=== PATIENT | female | born 1935 | race Caucasian/White ===

== ENCOUNTER 2020-07-28 09:23 | Outpatient (CLI) | payer MEDICARE, SELFPAY ==
--- NOTE | 2020-07-28 | ECHO_ITS ---
Patient Info Name: Yeni Matthews Age: 85 years : 1935 Gender: Female Ht: 64 in Wt: 135 lbs BSA: 1.67 m2 HR: 70 bpm BP: 149 / 77 mmHg Heart Rhythm: Sinus Rhythm Technical Quality: Good Exam Date: 07/28/2020 9:55 AM Exam Location: [facility] Patient Status: Outpatient Admit Date: 07/28/2020 Staff Ordering Physician: GinnyHaroldo PA-C Tool Lathe Operator: James Muro RDCS Attending Provider: JalynHaroldo PA-C Exam Type: CA echo doppler color flow Study Info Indications R00.0 - Tachycardia, unspecified Complete two-dimensional, color flow and Doppler transthoracic echocardiogram is performed. History/Risk Factors Tachycardia. Summary 1. Complete two-dimensional, color flow and Doppler transthoracic echocardiogram is performed. 2. Normal LV size and wall thickness, normal LV systolic function, EF 65-70%. Grade 1 diastolic dysfunction. Normal mitral valve structure, no significant MR. Aortic valve not well visualized, no significant stenosis by Doppler. Unable to assess RVSP due to inadequate TR jet velocity. Sinus rhythm. Left Ventricle Left ventricular chamber dimension is normal. Left ventricular systolic function is normal, estimated at 65-70%. There is no increased left ventricular wall thickness. Left ventricular septal wall motion is normal. The left ventricular diastolic function is grade I diastolic dysfunction. Right Ventricle Right ventricular chamber dimension is normal. Right ventricular systolic function is normal. Left Atria Left atrial chamber dimension is normal. Right Atria Right atrial chamber dimension is normal. Aortic Valve The aortic valve is not well visualized. There is no aortic valve stenosis. There is mild aortic valve regurgitation. Pulmonic Valve The pulmonic valve is not well visualized. There is no pulmonic valve stenosis. There is no pulmonic regurgitation. Mitral Valve The mitral valve has normal leaflets. There is no mitral valve stenosis. There is no mitral valve regurgitation. Tricuspid Valve The tricuspid valve leaflets are normal. There is no significant tricuspid valve stenosis. There is no tricuspid valve regurgitation. Pericardium/Pleural The pericardium appears normal. There is trivial pericardial effusion. Inferior Vena Cava Normal inferior vena cava with >50% collapse upon inspiration consistent with normal right atrial pressure, 5 mmHg. Aorta The aortic root size at the sinus of Valsalva is normal. The prox ascending aorta size is normal. Left Ventricular Outflow Tract Name Value Normal LVOT 2D LVOT Diameter 2.0 cm LVOT Doppler LVOT Peak Gradient 3 mmHg LVOT Mean Gradient 2 mmHg LVOT VTI 21 cm LVOT VTI/AV VTI Ratio 0.8 LVOT Stroke Volume 64 ml LVOT CO 4.4 l/min LVOT CI 2.6 l/min/m2 Mitral Valve
== END 2020-07-28 09:24 | disposition home or self-care (01) ==
PROVIDERS: PCP Physician Assistant; Visit Provider Physician Assistant
DX: R00.0 Tachycardia, unspecified (principal)
CPT/HCPCS: 93306

== ENCOUNTER 2020-09-22 08:13 | Outpatient (CLI) | payer MEDICARE, SELFPAY ==
--- NOTE | ~2020-09-22 | DEXA_ITS ---
Bone Density Report Name: Yeni Matthews Age: 85 Sex: Female Ethnicity: White Date of : 1935 Indication: osteopenia; height loss; hysterectomy; Referring Provider: Ginny, Haroldo Study: Bone densitometry was performed. Exam Date: September 22, 2020 Accession number: [id number] Bone Density: Region BMD T-score Z-score Classification AP Spine (L1-L4) 0.882 -1.5 1.3 Osteopenia Femoral Neck (Left) 0.649 -1.8 0.7 Osteopenia Total Hip (Left) 0.836 -0.9 1.4 Normal Total Hip Bilateral Avg 0.812 -1.1 1.2 Osteopenia Femoral Neck (Right) 0.578 -2.4 0.0 Osteopenia Total Hip (Right) 0.786 -1.3 1.0 Osteopenia World Health Organization criteria for BMD impression classify patients as: Normal (T-score at or above -1.0), Osteopenia (T-score between -1.0 and -2.5), or Osteoporosis (T-score at or below -2.5). 10-year Fracture Risk(1): Major Osteoporotic Fracture 17% Hip Fracture 6.0% Reported Risk Factors: [place] (), Neck BMD=0.578, BMI=23.2 (1) FRAX(R) Version 3.08. Fracture probability calculated for an untreated patient. Fracture probability may be lower if the patient has received treatment. Previous Exams: Region Exam Age BMD T-score BMD Change BMD Change Date g/cm2 vs Baseline vs Previous AP Spine(L1-L4) 09/22/2020 85 0.882 -1.5 -0.023(-2.6%)# 0.014(1.6%) 07/18/2017 82 0.868 -1.6 -0.037(-4.1%)# -0.006(-0.7%) 07/09/2015 80 0.874 -1.6 -0.031(-3.5%)# -0.031(-3.5%)# 05/08/2013 78 0.905 -1.3 Total Hip(Left) 09/22/2020 85 0.836 -0.9 -0.031(-3.6%)# -0.021(-2.5%) 07/18/2017 82 0.857 -0.7 -0.010(-1.2%)# -0.018(-2.0%) 07/09/2015 80 0.875 -0.5 0.007(0.9%)# 0.007(0.9%)# 05/08/2013 78 0.868 -0.6 Total Hip(Right) 09/22/2020 85 0.786 -1.3 -0.025(-3.1%)# -0.022(-2.7%) 07/18/2017 82 0.808 -1.1 -0.003(-0.4%)# -0.018(-2.2%) 07/09/2015 80 0.826 -0.9 0.015(1.8%)# 0.015(1.8%)# 05/08/2013 78 0.811 -1.1 *Denotes significance at 95% confidence level, LSC for AP Spine = 0.022 g/cm2, LSC for Total Hip = 0.027 g/cm2 Clinical Information Provided by Patient: Has used the following medications: Vitamin D, Calcium Has the following medical conditions: Hysterectomy Patient maximum height was 65 Menopause Age: 42 Does not regularly consume dairy products Onset of menses at age 13 Number of children 4 Impression: The patient has low bone mass, based on the Right Femor
--- NOTE | ~2020-09-22 | MM_ITS ---
EXAMINATION: MM screening [facility] BI w layo HISTORY: Screening mammogram TECHNIQUE: Craniocaudal and mediolateral oblique 3-D tomosynthesis images were obtained and synthetic 2-D images were generated. CAD analysis was submitted and interpreted. COMPARISON: 07/05/2019, 05/08/2013, 04/30/2013, 07/23/2012 BREAST PARENCHYMAL COMPOSITION: There are scattered areas of fibroglandular density. FINDINGS: There is no evidence of suspicious mass, calcification, or architectural distortion to sugg est malignancy in either breast. There has been no suspicious interval change. IMPRESSION: 1. No mammographic evidence of malignancy. 2. Recommend routine screening mammography while the patient remains in good health. BI-RADS Category 1: Negative Reviewed, dictated and finalized at location A. EL TECHNICIAN IMPRESSION: 1. No mammographic evidence of malignancy. 2. Recommend routine screening mammography while the patient remains in good he alth. BI-RADS Category 1: Negative
== END 2020-09-22 08:14 | disposition home or self-care (01) ==
PROVIDERS: PCP Physician Assistant; Visit Provider Physician Assistant
DX: Z12.31 Encounter for screening mammogram for malignant neoplasm of breast (principal); N95.9 Unspecified menopausal and perimenopausal disorder; M85.88 Other specified disorders of bone density and structure, other site; M85.852 Other specified disorders of bone density and structure, left thigh; M85.851 Other specified disorders of bone density and structure, right thigh
CPT/HCPCS: 77063; 77067; 77080

== ENCOUNTER 2020-10-09 17:14 | Emergency (ER) | payer MEDICARE, SELFPAY ==
[2020-10-09] VITALS (29 sets, daily range): BP systolic 89–163; BP diastolic 47–84; PULSE 84–106; RESP 7–25; TEMP 36.3; O2SAT 97–100
--- NOTE | ~2020-10-09 | CT_ITS ---
EXAMINATION: CT brain wo con DATE: 10/09/2020 18:04 INDICATION: Headache. Altered mental status. TECHNIQUE: Computed tomography (CT) of the head was performed without intravenous contrast. The mA wa s adjusted according to patient size. Iterative reconstruction technique was employed. The dose-lengt h product was 605.33 mGy-cm. COMPARISON: Head CT 04/05/2019 FINDINGS: There are scattered areas of low attenuation in the cerebral white matter. There is no intr acranial hemorrhage, acute infarction, or abnormal intracranial mass lesion. The ventricles are wes l in size. There is mild mucosal thickening in the paranasal sinuses. There are likely changes of ocu lar lens replacement surgeries. The mastoid air cells are normal. IMPRESSION: 1. Stable moderate nonspecific cerebral white matter disease, which likely represents chronic small v essel ischemic disease. Reviewed, dictated and finalized at location A. DING MACHINE OPERATOR IMPRESSION: 1. Stable moderate nonspecific cerebral white matter disease, which likely repr esents chronic small vessel ischemic disease.
--- NOTE | ~2020-10-09 | CT_ITS ---
EXAMINATION: CT cervical spine wo con DATE: 10/09/2020 18:04 INDICATION: Neck injury. TECHNIQUE: Computed tomography (CT) of the cervical spine was performed without intravenous contrast. Automated exposure control and iterative reconstruction technique were employed. The dose-length pro duct was 239.06 mGy-cm. COMPARISON: None FINDINGS: There is 4 degrees dextrocurvature of cervical spine. There is 2 mm anterolisthesis of C4 o n C5. Vertebral body heights are normal. There is mildly decreased disc height at C3-C4 and C4-C5 and severely decreased disc height at C5-C6 and C6-C7. The following disc levels are specifically discus sed: C2-C3: There is moderate left uncovertebral joint osteoarthritis. There is mild right and severe left facet joint osteoarthritis. There is mild left neural foraminal stenosis. There is no central canal stenosis. C3-C4: There is severe bilateral uncovertebral joint osteoarthritis. There is mild bilateral facet ana paula int osteoarthritis. There is mild bilateral neural foraminal stenosis. There is mild central canal st enosis. C4-C5: There is severe right and mild left uncovertebral joint osteoarthritis. There is severe left f acet joint osteoarthritis. There is mild bilateral neural foraminal stenosis. There is mild central c anal stenosis. C5-C6: There is severe bilateral uncovertebral joint osteoarthritis. There is mild bilateral facet ana paula int osteoarthritis. There is mild bilateral neural foraminal stenosis. There is mild central canal st enosis. C6-C7: There is severe right and mild left uncovertebral joint osteoarthritis. There is moderate and severe left facet joint osteoarthritis. There is mild bilateral neural foraminal stenosis. There is n o central canal stenosis. C7-T1: There is no uncovertebral joint osteoarthritis. There is mild right and severe left facet join t osteoarthritis. There is mild left neural foraminal stenosis. There is no central canal stenosis. IMPRESSION: 1. No fracture. 2. Severe cervical spondylosis. Reviewed, dictated and finalized at location A. WASHER
--- NOTE | 2020-10-09 20:06 | ED.FALL ---
HPI - Fall General Chief Complaint: Fall Stated Complaint: fall Time Seen by Provider: 10/09/20 19:17 History of Present Illness HPI Narrative: Patient is a 85-year-old female who presents to emergency department with chief complaint of head injury. The patient reports that she was walking her dogs she had the leash got wrapped around her ankle and then she fell backwards. Patient states that she is unsure whether she had loss of consciousness but does not remember the actual fall or the immediate preceding events. The patient states that currently she knows where she is at and reports no weakness in her arms or legs or focal neurological deficit. Patient denies being on any anticoagulant or antiplatelet therapy. Patient reports that currently she has a mild headache and reports that she has a stiff neck. Related Data Allergies Allergy/AdvReac Type Severity Reaction Status Date / Time Sulfa (Sulfonamide Allergy Unknown Verified 10/20/15 09:32 Antibiotics) Review of Systems Review of Systems: Narrative: CONSTITUTIONAL: Denies fever, chills, or sweats. EYES: Denies visual changes, redness, or discharge. ENT: Denies rhinorrhea, congestion, sore throat, or otalgia. CARDIOVASCULAR: Denies chest pain, palpitations, or edema. RESPIRATORY: Denies cough or dyspnea. GASTROINTESTINAL: Denies abdominal pain, nausea, vomiting, or diarrhea. GENITOURINARY: Denies dysuria or hematuria. SKIN: Denies rash or itching. MUSCULOSKELETAL: Denies back pain, joint pain, or myalgia. NEUROLOGIC: Denies headache, numbness, or weakness. PSYCHIATRIC: Denies anxiety or depression. A 10 system review of systems was completed on the patient and is negative except for what is stated in the HPI. Nursing and ancillary documentation was reviewed. [facility] Family History Family History Sibling Family history of bipolar disorder Mother Acute myocardial infarction Other Family history of malignant melanoma Social History Social History Smoking status: Never smoker Second hand tobacco smoke exposure: No Alcohol intake: current Comments Patient reports that she has no significant past medical history and is currently not on any regular prescription medications Exam Narrative: Exam Narrative: GENERAL: Well-appearing, well-nourished, and in no acute distress. HEAD: Normocephalic, atraumatic. EYES: PERRLA and EOMI. ENT: Nares clear, no rhinorrhea or epistaxis. Mucous membranes moist. NECK: Supple. CHEST: Clear to auscultation. No respiratory distress. HEART: Regular rate and rhythm. No murmur heard. Normal peripheral pulses. ABDOMEN: Soft, nontender, nondistended, normal active bowel sounds. EXTREMITIES: Normal range of motion. No edema. SKIN: Warm, dry, no rash. NEURO: No focal deficits. Alert and oriented x3. GCS 15 PSYCH: Normal mood and affect. Course Course Emergency Course: Patient CT had showed a 6 mm hematoma septum pellucidum. Currently the patient is neurologically intact and is not on any antiplatelet or anticoagulant therapy. Due to the findings the case was discussed with the transfer center at [place] who currently has extremely limited beds and had recommended checking with another facility with neurosurgery capability. [facility] currently does not have any available beds the case has been discussed with the emergency transfer center and they are checking on the bed at this time. Vital Signs Vital signs: Vital Signs Temperature 36.3 C L 10/09/20 17:36 Pulse Rate 84 10/09/20 17:36 Respiratory Rate 15 10/09/20 17:36 Blood Pressure 163/84 H 10/09/20 17:36 Pulse Oximetry 100 10/09/20 17:36 Temperature 36.3 C L 10/09/20 17:36 Pulse Rate 94 10/09/20 19:23 Respiratory Rate 13 10/09/20 19:23 Blood Pressure 150/75 H 10/09/20 19:23 Pulse Oximetry 99 10/09/20 19:23
--- NOTE | 2020-10-09 20:14 | PC.NURSE ---
RN spoke with Daughter Dottie (JESSICA) at this time.
== END 2020-10-09 22:36 | disposition short-term general hospital (02) ==
PROVIDERS: Emergency Provider Emergency Medicine; PCP Physician Assistant
DX: S06.379A Contusion, laceration, and hemorrhage of cerebellum with loss of consciousness of unspecified duration, initial encounter (principal); R90.82 White matter disease, unspecified; M47.812 Spondylosis without myelopathy or radiculopathy, cervical region; Y93.K1 Activity, walking an animal; W18.09XA Striking against other object with subsequent fall, initial encounter
CPT/HCPCS: 70450; 72125; 99285

== ENCOUNTER 2020-10-15 09:00 | Outpatient (RCR) | payer MEDICARE, SELFPAY ==
--- NOTE | 2020-10-14 09:56 | PTOPEVAL ---
PHYSICAL THERAPY EVALUATION/DISCHARGE SUMMARY Thank you for referring Yeni Matthews to [facility].? The patient was evaluated and found to have no skilled PT needs at this time. The patient is discontinued from physical therapy-patient and family agree. Please review, sign, date and return this plan of care [facility]. I agree with the following plan. Referring Physician Date Attending Provider: Francesca Bailey TRAFFIC CONTROL SPECIALIST *PT Outpatient Evaluation/Discharge Start: 10/14/20 09:00 Freq: Status: Active Protocol: Document 10/14/20 09:00 [facility] (Rec: 10/14/20 09:55 [facility] [id number]) Therapy Assessment Status Assessment Status Evaluation Evaluation Information Problem Diagnosis subdural hematoma Onset 10/09/20 Cause fall Additional Evaluation Detail Patient was playing with the dogs and one of the dogs knocked her down and she hit her head, was unconsious a few seconds. Prior to that event the patient had no limits on lifestyle and was active. The patient has received PT for vertigo in recent past. Subjective Information Patient reports more memory Query Text:As Reported By Patient/ issues since fall. Patient Family does not notice any physical changes but wants to be checked to assure no therapy issues. Diagnostic Tests X-Rays For This Problem Yes: no fractures MRI For This Problem Yes: same results as CT scan Other Tests For This Problem Yes: CT scan; bleed had stopped on 2nd test Prior Level of Function Activity Level (Last 3 Months) Occupation retired Activity of Daily Living Ability Independent Indoor/Home Mobility Independent Community Mobility Independent Stairs Ability Independent Functional Cognition (Planning, Shopping Independent , Taking Medications) Cooking Yes Cleaning Yes Laundry Yes Shopping Yes Driving No Home Setting Home Type House,Single Level Environmental Barriers Railing, Bilateral,Stairs, Threshold Living Situation Alone Support Available Local Family Support Mobility Assistive Devices (Used Last 3 None Months) Pain Assessment Timing of Pain Assessment Timing of Pain Assessment
--- NOTE | 2020-10-15 11:38 | STOPEVAL ---
SPEECH THERAPY INITIAL EVALUATION AND DISCHARGE: Thank you for referring Yeni Matthews to [facility].?Upon evaluation, it has been determined that cognitive linguistic skills are within normal limits; therefore, no further speech therapy is warranted at this time. Please review, sign, date and return this plan of care [facility]. I agree with and certify that the following plan of care is medically necessary. Referring Physician Date Attending Provider: PHYSICIAN NOT ON STAFF *ST Outpatient Evaluation Start: 10/15/20 09:54 Freq: Status: Active Protocol: Document 10/15/20 09:54 [facility] (Rec: 10/15/20 11:38 [facility]CH[facility] [id number]) Therapy Assessment Status Assessment Status Assessment Status Evaluation Outpatient Past Medical History Neurological History Hx Neurological Disorders No Significant History Cardiovascular History Hx Cardiac Disorders No Significant History Respiratory History Hx Respiratory Disorders No Significant History Gastrointestinal History Hx Gastrointestinal Disorders No Significant History Genitourinary History Hx Genitourinary Disorders No Significant History Musculoskeletal History Hx Other Musculoskeletal Disorders Yes: Osteopenia Endocrine History Hx Endocrine Disorders No Significant History HEENT History Hx Cataracts Yes: 5 yrs ago Reproductive History Hx Hysterectomy Yes: in her 30's - partial Pain Assessment Timing of Pain Assessment Timing of Pain Assessment Assessment Self Report Self Report Pain Level 0 Pain Score Pain Score 0: Self Report Cognitive Evaluation Attention Assessment Sustained Attention Overall Attention Ability No Impairment Selective Attention Overall Attention Ability No Impairment Alternating Attention Overall Attention Ability No Impairment Orientation/Memory Assessment Immediate Memory 100 Query Text:% Accuracy Recent Memory 100 Query Text:% Accuracy Remote Memory 100 Query Text:% Accuracy Prospective Memory 100 Query Text:% Accuracy Temporal Orientation 100 Query Text:% Accuracy Spatial/Environmental Orientation 100 Query Text:% Accuracy Overall Orientation and Memory No Impairment Problem Solving Simple Problem Solving: Percent of 100 Accuracy 0-100 (%) Complex Problem Solving: Percent of 100 Accuracy 0-100 (%) Overall Problem Solving Skills No Impairment Thought Organization Sequencing: Percent of Accuracy 0-100 (% 100 ) Categorizing: Percent of Accuracy 0-100 100 (%) Functional Math: Percent of Accuracy 0- 100 100 (%) Functional Read
== END 2020-10-15 14:18 | disposition home or self-care (01) ==
LOC: ANHST 09:00
PROVIDERS: PCP Physician Assistant
DX: S06.5X9D Traumatic subdural hemorrhage with loss of consciousness of unspecified duration, subsequent encounter (principal)
CPT/HCPCS: 96125; 97161

== ENCOUNTER 2020-12-16 10:51 | Outpatient (CLI) | payer MEDICARE, SELFPAY ==
--- NOTE | ~2020-12-16 | CT_ITS ---
EXAMINATION: CT brain wo con DATE: 12/16/2020 11:24 INDICATION: Head injury. TECHNIQUE: Computed tomography (CT) of the head was performed without intravenous contrast. The mA wa s adjusted according to patient size. Iterative reconstruction technique was employed. The dose-lengt h product was 605.33 mGy-cm. COMPARISON: Head CT 10/09/2020 FINDINGS: There are scattered areas of low attenuation in the cerebral white matter. There is no intr acranial hemorrhage, acute infarction, or abnormal intracranial mass lesion. The ventricles are wes l in size. There are likely changes of ocular lens replacement surgeries. There is mild mucosal thick ening in the paranasal sinuses. The mastoid air cells are normal. IMPRESSION: 1. Stable moderate nonspecific cerebral white matter disease, which likely represents chronic small v essel ischemic disease. Reviewed, dictated and finalized at location A. AND STEEL WORK SUPERVISOR IMPRESSION: 1. Stable moderate nonspecific cerebral white matter disease, which likely repr esents chronic small vessel ischemic disease.
== END 2020-12-16 10:52 | disposition home or self-care (01) ==
PROVIDERS: PCP Physician Assistant; Visit Provider Physician Assistant
DX: S09.90XA Unspecified injury of head, initial encounter (principal); R90.82 White matter disease, unspecified
CPT/HCPCS: 70450

== ENCOUNTER → 2021-06-11 07:42 | Outpatient (CLI) | payer MEDICARE, SELFPAY ==
--- NOTE | ~2021-06-11 | US_ITS ---
US abdomen complete EXAMINATION: US Abdomen Complete INDICATION: Upper abdominal pain PROCEDURE: Realtime High Resolution abdomen ultrasound. COMPARISON: No prior studies for comparison FINDINGS: Gallbladder within normal limits. No gallstones, pericholecystic fluid, gallbladder wall t hickening or biliary dilatation. Common bile duct measures 4 mm. Liver echotexture within normal limits without focal mass. Pancreas within normal limits. Pancreati c tail is obscured by bowel gas. Spleen is unremarkeable. Renal echotexture is within normal limits bilaterally without hydronephrosis, contour deforming mass or renal stone. Right kidney measures 8.5 cm. Left kidney measures 9 cm. There is a 2 cm left renal cyst. There is left hydronephrosis. Visualized aspects of the aorta and IVC are within normal limits. Portal vein is patent. No sonograph ic Adrian's sign indicated by the technologist. IMPRESSION: 1: Left hydronephrosis. Reviewed, dictated and finalized at location A. IMPRESSION: 1: Left hydronephrosis.
== END ==
PROVIDERS: PCP Physician Assistant; Visit Provider Physician Assistant
DX: R10.10 Upper abdominal pain, unspecified (principal); N13.30 Unspecified hydronephrosis
CPT/HCPCS: 76700

== ENCOUNTER → 2021-06-18 08:59 | Outpatient (CLI) | payer MEDICARE, SELFPAY ==
--- NOTE | ~2021-06-18 | CT_ITS ---
EXAMINATION: CT abdomen pelvis wo con DATE: 06/18/2021 09:14 INDICATION: Left hydronephrosis, epigastric pain TECHNIQUE: Computed tomography (CT) of the abdomen and pelvis was performed without intravenous contr ast. The dose-length product (DLP) was 414.27 mGy-cm. Automated exposure control and iterative recons truction technique were employed. COMPARISON: Ultrasound, 06/11/2021 FINDINGS: Minimal dependent atelectasis is present in the lung bases. The heart size is normal. There is mild circumferential wall thickening of the distal esophagus. Punctate calcifications in an other mart normal spleen likely represent healed granulomatous disease. The liver, pancreas, gallbladder, a nd right adrenal gland are normal. A punctate calcification in the left adrenal gland could reflect p rior hemorrhage or trauma. The right kidney is unremarkable. There are multiple peripelvic cysts of t he left kidney. No left hydronephrosis is identified. No pathologically enlarged abdominal or pelvic lymph nodes are identified. There is no free intraperitoneal gas or evidence of bowel obstruction. Th ere is moderate thoracolumbar spondylosis. IMPRESSION: 1. Multiple peripelvic cysts of the left kidney without hydronephrosis. 2. Circumferential wall thickening of the distal esophagus which could reflect esophagitis. Consider direct visualization. Reviewed, dictated and finalized at location A.
== END ==
PROVIDERS: PCP Physician Assistant; Visit Provider Physician Assistant
DX: N13.30 Unspecified hydronephrosis (principal); N28.1 Cyst of kidney, acquired; M47.815 Spondylosis without myelopathy or radiculopathy, thoracolumbar region
CPT/HCPCS: 74176

== ENCOUNTER 2022-03-27 12:05 | Emergency (ER) | payer MEDICARE, SELFPAY ==
--- NOTE | ~2022-03-27 | XR_ITS ---
XR chest 2V DATE: 03/27/2022 12:33 INDICATION: Cough, congestion. Fatigue. Weakness. TECHNIQUE: PA and lateral views COMPARISON: 10/25/2012 PA and lateral chest FINDINGS: Normal heart size. Aortic calcification and mild unfolding. There is old pulmonary granulom atous disease. No pulmonary infiltrate or consolidation, pleural effusion or pulmonary vascular congestion or pneumo thorax. There is levoscoliosis of the thoracolumbar spine. There is diffuse osteopenia. IMPRESSION: No active cardiac pulmonary disease Aortic atherosclerosis Old pulmonary granulomatous disease Osteopenia Reviewed, dictated and finalized at location A.
[2022-03-27 12:10] VITALS: BP 152/75; PULSE 107; RESP 18; TEMP 36.4; O2SAT 97
[2022-03-27 12:38] LABS: Basophils Percent Auto 0.2 % (0.2-1.2); Eosinophils Absolute Auto 0.1 K/mm3 (0-0.3); Eosinophils Percent Auto 0.9 % (0-4.4); Hematocrit 41.4 % (37.0-47.0); Hemoglobin 13.3 g/dL (12.0-15.0); Immature Granulocyte Absolute 0.03 K/mm3 (0.00-0.031); Immature Granulocyte Percent A 0.3 % (0-0.5); Lymphocytes Absolute Auto 2.47 K/mm3 (0.9-3.2); Lymphocytes Percent Auto 23.9 % (18.3-44.2); Mean Corpuscular HGB Conc 32.1 g/dl (32-36); Mean Corpuscular Hemoglobin 31.7 pg (26-34); Mean Corpuscular Volume 98.8 fl (80-100); Mean Platelet Volume 8.8 fl (7.4-10.4); Monocytes Absolute Auto 0.4 K/mm3 (0.1-0.6); Monocytes Percent Auto 4.3 % (2.6-8.5); Neutrophils Absolute Auto 7.3 K/mm3 (1.3-6.7); Neutrophils Percent Auto 70.4 % (45.5-73.1); Platelet Count Result 224 k/mm3 (150-375); Red Blood Count 4.19 M/mm3 (4.2-5.4); Red Cell Distribution Width 13.5 % (11.5-14.5); White Blood Count 10.3 K/mm3 (4.5-10.0)
[2022-03-27 12:52] LABS: Alanine Aminotransferase 25 U/L (6-35); Albumin Level 4.5 g/dL (3.5-5.1); Alkaline Phosphatase 90 U/L (38-126); Anion Gap 8 mmol/L (8-16); Aspartate Amino Transferase 32 U/L (14-36); Bilirubin,Total 0.4 mg/dL (0.2-1.3); Blood Urea Nitrogen 14 mg/dL (7-17); Carbon Dioxide 27 mmol/L (22-30); Chloride 104 mmol/L (98-107); Estimated CRCL calculation 35 ml/min; Estimated Glomerular Filt Rate 60; Glucose 112 mg/dL (65-110); Potassium 4.8 mmol/L (3.4-5.0); Sodium 139 mmol/L (137-145)
--- NOTE | 2022-03-27 14:03 | ED.SOB ---
HPI - SOB/Dyspnea General Chief Complaint: Shortness of Breath/Dyspnea Stated Complaint: cough getting worse and headache Time Seen by Provider: 03/27/22 12:26 History of Present Illness HPI Narrative: Patient is an 87-year-old female who presents ER with shortness of breath. Recently placed on a Z-Wilfred for possible pneumonia after having abnormal lung sounds at [facility] urgent care. No fevers or chills or sweats. Does have a cough has been productive. No chest pain or chest pressure. No abdominal discomfort or other GI symptoms. Related Data Allergies Allergy/AdvReac Type Severity Reaction Status Date / Time Sulfa (Sulfonamide Allergy Unknown Verified 10/20/15 09:32 Antibiotics) Review of Systems Review of Systems: All systems reviewed & are unremarkable except as noted in HPI and below Constitutional: Constitutional: Denies chills, Reports fatigue, Denies fever(s) and Reports weakness ENT: Reports nasal congestion and Denies sore throat Cardiovascular: Cardiovascular: Denies chest pain, Denies rapid heart rate and Denies radiating jaw, neck or arm pain Respiratory: Respiratory: Reports cough, Reports dyspnea and Denies wheezing Gastrointestinal: Gastrointestinal: Denies abdominal pain, Denies nausea and Denies vomiting PMFSH Past Medical History Medical History (Updated 03/27/22 @ 15:52 by Ayden Logan MD) Bronchitis Surgical History Surgical History (Updated 03/27/22 @ 14:04 by Ayden Logan MD) History of hysterectomy Family History Family History Sibling Family history of bipolar disorder Mother Acute myocardial infarction Other Family history of malignant melanoma Social History Social History Smoking status: Never smoker Second hand tobacco smoke exposure: No Alcohol intake: current Exam Narrative: GENERAL: Well-appearing, well-nourished, and in no acute distress. HEAD: Normocephalic, atraumatic. NECK: Supple. CHEST: Clear to auscultation. No respiratory distress. HEART: Regular rate and rhythm. Normal peripheral pulses. ABDOMEN: Soft, nontender, nondistended. EXTREMITIES: Normal range of motion. No edema. SKIN: Warm, dry, no rash. NEURO: Alert and oriented x3. PSYCH: Normal mood and affect. Course Course Emergency Course: Normal exam. X-ray without pneumonia. Labs unremarkable. Continue home medication. We will add steroids as this may be of benefit to her. Vital Signs Vital signs: Vital Signs Temperature 97.6 F 03/27/22 12:10 Pulse Rate 107 H 03/27/22 12:10 Respiratory Rate 18 03/27/22 12:10 Blood Pressure 152/75 H 03/27/22 12:10 Pulse Oximetry 97 03/27/22 12:10 Temperature 97.6 F 03/27/22 12:10 Pulse Rate 107 H 03/27/22 12:10 Respiratory Rate 18 03/27/22 12:10 Blood Pressure 152/75 H 03/27/22 12:10 Pulse Oximetry 97 03/27/22 12:10 MDM - SOB/Dyspnea Lab Data Result diagrams: 03/27/22 12:28 03/27/22 12:28 Labs: Lab Results 03/27/22 03/27/22 03/27/22 Range/Units 12:28 12:28 14:22 WBC 10.3 H (4.5-10.0) K/mm3 RBC 4.19 L (4.2-5.4) M/mm3 Hgb 13.3 (12.0-15.0) g/dL Hct 41.4 (37.0-47.0) % MCV 98.8 (80-100) fl MCH 31.7 (26-34) pg MCHC 32.1 (32-36) g/dl RDW 13.5 (11.5-14.5) % Plt Count 224 (150-375) k/mm3 MPV 8.8 (7.4-10.4) fl Immature Gran % (Auto) 0.3 (0-0.5) % Neut % (Auto) 70.4 (45.5-73.1) % Lymph % (Auto) 23.9 (18.3-44.2) % [place] % (Auto) 4.3 (2.6-8.5) % Eos % (Auto) 0.9 (0-4.4) % Baso % (Auto) 0.2 (0.2-1.2) % Lymph # (Auto) 2.47 (0.9-3.2) K/mm3 [place] # (Auto) 0.4 (0.1-0.6) K/mm3 Eos # (Auto) 0.1 (0-0.3) K/mm3 Baso # (Auto) 0.0 (0.0-0.1) K/mm3 Abs Immat Gran (auto) 0.03 (0.00-0.031) K/mm3 Absolute Neuts (auto) 7.3 H (1.3-6.7) K/mm3 Absolute Nucleated
[2022-03-27] MEDS: SODIUM CHLORIDE 0.9% IV 1,000 ML 999 ML IV CONT (14:27)
[2022-03-27 15:03] LABS: Influenza A QL RT-PCR Negative (Negative); Influenza B QL RT-PCR Negative (Negative); SARS-CoV-2 RNA PCR Negative
[2022-03-27] MEDS: ACETAMINOPHEN 325 MG TABLET 650 MG PO (15:25)
== END 2022-03-27 16:26 | disposition home or self-care (01) ==
PROVIDERS: Emergency Provider Emergency Medicine; PCP Physician Assistant
DX: J40 Bronchitis, not specified as acute or chronic (principal); Z20.822 Contact with and (suspected) exposure to COVID-19; M85.80 Other specified disorders of bone density and structure, unspecified site; I70.0 Atherosclerosis of aorta
CPT/HCPCS: 36415; 71046; 80053; 85025; 87502; 96360; 99283; A9270; C9803; J7030; U0003; U0005

== ENCOUNTER → 2022-09-09 10:51 | Outpatient (CLI) | payer MEDICARE, SELFPAY ==
--- NOTE | ~2022-09-09 | XR_ITS ---
XR knee RT min 4V 09/09/2022 11:11 Indication: Right knee pain Procedure: 4 views right knee Comparison: No prior studies for comparison. Findings: Mild osteoarthritis of the right knee. No fracture, subluxation or dislocation. No signific ant joint effusion. No foreign bodies. Impression: 1: Mild osteoarthritis of the right knee. Reviewed, dictated and finalized at location B. Impression: 1: Mild osteoarthritis of the right knee.
--- NOTE | ~2022-09-09 | MR_ITS ---
EXAMINATION: MR knee RT wo con DATE: 09/09/2022 16:22 INDICATION: Effusion of right knee. Right knee pain. TECHNIQUE: Magnetic resonance imaging (MRI) of the right knee was performed without intravenous contr ast. Sequences included axial PD-weighted FS FSE, coronal PD-weighted FSE and PD-weighted FS FSE, sag ittal PD-weighted FSE, and sagittal T2-weighted FS FSE. COMPARISON: Right knee radiographs 09/09/2022, MRI 03/07/2018 FINDINGS: Medial compartment: There is a complex tear involving body and posterior horn of medial meniscus. There is shallow partia l-thickness cartilage loss of tibial condyle. There is partial-thickness cartilage loss of femoral co ndyle, deep at the central articular surface. Osteophytes are noted. Lateral compartment: There is a complex tear involving anterior horn and body of lateral meniscus. There is partial-thickn ess cartilage loss of tibial condyle, deep posteriorly. There is cartilage surface irregularity of fe moral condyle. Osteophytes are noted. Patellofemoral compartment: There is deep partial thickness cartilage loss of patellar lateral facet with mild subchondral edema- like marrow signal intensity. There is deep fissuring of patellar medial facet. Trochlear dysplasia i s noted. There is cartilage surface irregularity of trochlea. Osteophytes are noted. Ligaments and tendons: The anterior and posterior cruciate ligaments are normal. There are changes of prior sprains of media l collateral ligament and fibular collateral ligament characterized with thickening and increased sig nal intensity proximally. There is mild patellar tendinopathy. Fluid: There is a moderate-sized knee joint effusion. There is a large ruptured Martines's cyst. There is mild prepatellar and superficial infrapatellar bursitis. There is mild deep infrapatellar bursitis. IMPRESSION: 1. Moderate tricompartmental chondrosis. 2. Tears of medial and lateral menisci. 3. Moderate-sized knee joint effusion. 4. Large ruptured Martines's cyst. Reviewed, dictated and finalized at location A.
== END ==
PROVIDERS: PCP Physician Assistant; Visit Provider Physician Assistant
DX: M25.461 Effusion, right knee (principal); M22.2X1 Patellofemoral disorders, right knee; S83.241A Other tear of medial meniscus, current injury, right knee, initial encounter; S83.281A Other tear of lateral meniscus, current injury, right knee, initial encounter; M71.21 Synovial cyst of popliteal space [Baker], right knee; M16.11 Unilateral primary osteoarthritis, right hip
CPT/HCPCS: 73564; 73721

== ENCOUNTER 2022-09-19 13:28 | Outpatient (CLI) | payer MEDICARE, SELFPAY ==
--- NOTE | ~2022-09-19 | DEXA_ITS ---
Bone Density Report Name: LI MARTINES Age: 87 Sex: Female Ethnicity: White Date of : 1935 Indication: osteopenia; height loss; hysterectomy; postmenopausal Referring Provider: BENJAMIN, ZELALEM Study: Bone densitometry was performed. Exam Date: September 19, 2022 Accession number: [id number] Bone Density: Region BMD T-score Z-score Classification AP Spine(L1-L4) 0.879 -1.5 1.3 Osteopenia Femoral Neck (Left) 0.647 -1.8 0.7 Osteopenia Total Hip (Left) 0.829 -0.9 1.4 Normal Femoral Neck (Right) 0.597 -2.3 0.3 Osteopenia Total Hip (Right) 0.793 -1.2 1.1 Osteopenia Total Hip Mean 0.811 -1.1 1.3 Osteopenia World Health Organization criteria for BMD impression classify patients as: Normal (T-score at or above -1.0), Osteopenia (T-score between -1.0 and -2.5), or Osteoporosis (T-score at or below -2.5). 10-year Fracture Risk(1): Major Osteoporotic Fracture 15% Hip Fracture 5.3% Reported Risk Factors: [place] (), Neck BMD=0.597, BMI=22.1 (1) FRAX(R) Version 3.08. Fracture probability calculated for an untreated patient. Fracture probability may be lower if the patient has received treatment. Previous Exams: Region Exam Age BMD T-score BMD Change BMD Change Date g/cm2 vs Baseline vs Previous AP Spine (L1-L4) 09/19/2022 87 0.879 -1.5 -0.026 (-2.9%) -0.003 (-0.3%) 09/22/2020 85 0.882 -1.5 -0.023 (-2.6%) 0.014 (1.6%) 07/18/2017 82 0.868 -1.6 -0.037 (-4.1%) -0.006 (-0.7%) 07/09/2015 80 0.874 -1.6 -0.031 (-3.5%) -0.031 (-3.5%) 05/08/2013 78 0.905 -1.3 Total Hip(Left) 09/19/2022 87 0.829 -0.9 -0.039 (-4.5%) -0.008 (-0.9%) 09/22/2020 85 0.836 -0.9 -0.031 (-3.6%) -0.021 (-2.5%) 07/18/2017 82 0.857 -0.7 -0.010 (-1.2%) -0.018 (-2.0%) 07/09/2015 80 0.875 -0.5 0.007 (0.9%)# 0.007 (0.9%)# 05/08/2013 78 0.868 -0.6 Total Hip(Right) 09/19/2022 87 0.793 -1.2 -0.019 (-2.3%) 0.006 (0.8%) 09/22/2020 85 0.786 -1.3 -0.025 (-3.1%) -0.022 (-2.7%) 07/18/2017 82 0.808 -1.1 -0.003 (-0.4%) -0.018 (-2.2%) 07/09/2015 80 0.826 -0.9 0.015 (1.8%)# 0.015 (1.8%)# 05/08/2013 78 0.811 -1.1 *Denotes significance at 95% confidence level, LSC for AP Spine = 0.022 g/cm2, LSC for Total Hip = 0.027 g/cm2 # Denotes dissimilar scan types or analysis methods Clinical Information Provided by Patient: Has used the following medications: Vitamin D Has the following medical conditions: Hysterectomy Patient ju
== END 2022-09-19 13:29 | disposition home or self-care (01) ==
LOC: ANHIMG 13:30
PROVIDERS: PCP Physician Assistant; Visit Provider Physician Assistant
DX: Z78.0 Asymptomatic menopausal state (principal); M85.89 Other specified disorders of bone density and structure, multiple sites
CPT/HCPCS: 77080

== ENCOUNTER → 2022-10-05 15:04 | Outpatient (CLI) | payer MEDICARE, SELFPAY ==
--- NOTE | ~2022-10-05 | XR_ITS ---
XR hip LT min 2V 10/05/2022 15:20 Indication: Left hip Procedure: 2 views left hip Comparison: 05/14/2019 Findings: There is anatomic alignment of the left hip. No significant joint space narrowing. No fract ure or traumatic malalignment. No significant soft tissue abnormality. Surrounding osseous structures are unremarkable. Impression: 1: No significant bone or joint abnormality. Reviewed, dictated and finalized at location B. CUTTER Impression: 1: No significant bone or joint abnormality.
== END ==
PROVIDERS: PCP Physician Assistant; Visit Provider Physician Assistant
DX: M25.552 Pain in left hip (principal)
CPT/HCPCS: 73502

== ENCOUNTER → 2022-10-20 16:03 | Outpatient (CLI) | payer MEDICARE, SELFPAY ==
--- NOTE | ~2022-10-20 | MR_ITS ---
EXAMINATION: MR hip LT wo con DATE: 10/20/2022 17:04 INDICATION: Left hip pain. TECHNIQUE: Magnetic resonance imaging (MRI) of the left hip was performed without intravenous contras t. COMPARISON: Left hip radiographs 10/05/2022 FINDINGS: Bones/cartilage: There is lumbar dextrocurvature and mild spondylosis. No fracture. The hip joints demonstrate tiny os teophytes. Small [id number] images of left hip demonstrate partial-thickness cartilage loss. Labrum: There is a tear of the left acetabular labrum. Fluid: There is no hip joint effusion. There is mild right and moderate left trochanteric bursitis. Soft tissues: The right gluteus medius and gluteus minimus tendons are normal. Left gluteus minimus tendon is wes l. There is moderate left gluteus medius tendinopathy. There is mild tendinopathy of the hamstring or igins bilaterally. The iliopsoas tendons are normal. IMPRESSION: 1. Mild osteoarthritis of the hips. 2. Moderate left gluteus medius tendinopathy. 3. Mild right and moderate left trochanteric bursitis. Reviewed, dictated and finalized at location A. UNTING CONSULTANT
== END ==
PROVIDERS: PCP Physician Assistant; Visit Provider Physician Assistant
DX: M16.0 Bilateral primary osteoarthritis of hip (principal); M70.62 Trochanteric bursitis, left hip
CPT/HCPCS: 73721

== ENCOUNTER 2022-11-01 10:01 | Outpatient (CLI) | payer MEDICARE, SELFPAY ==
--- NOTE | ~2022-11-01 | MM_ITS ---
EXAMINATION: MM screening brandon BI w layo HISTORY: Screening TECHNIQUE: Craniocaudal and mediolateral oblique 3-D tomosynthesis images were obtained and synthetic 2-D images were generated. CAD analysis was submitted and interpreted. COMPARISON: Comparison to multiple prior studies sequentially, with oldest reviewed study dated 07/05. BREAST PARENCHYMAL COMPOSITION: There are scattered areas of fibroglandular density. FINDINGS: There is no evidence of suspicious mass, calcification, or architectural distortion to sugg est malignancy in either breast. There has been no suspicious interval change. IMPRESSION: 1. No mammographic evidence of malignancy. 2. Recommend routine screening mammography in one year. BI-RADS Category 1: Negative Reviewed, dictated and finalized at location A. TICE REPRESENTATIVE
== END 2022-11-01 10:02 | disposition home or self-care (01) ==
LOC: ANHIMG 10:02
PROVIDERS: PCP Physician Assistant; Visit Provider Physician Assistant
DX: Z12.31 Encounter for screening mammogram for malignant neoplasm of breast (principal)
CPT/HCPCS: 77063; 77067

== ENCOUNTER → 2023-03-15 08:29 | Outpatient (CLI) | payer MEDICARE, SELFPAY ==
--- NOTE | ~2023-03-15 | MR_ITS ---
EXAMINATION: MR knee RT wo con DATE: 03/15/2023 09:24 INDICATION: Meniscal tear presenting with lateral right knee pain and generalized swelling TECHNIQUE: Magnetic resonance imaging (MRI) of the right knee was performed without intravenous contr ast. Sequences included coronal PD-weighted FSE, coronal PD-weighted FS FSE, sagittal T2-weighted FS E, sagittal PD-weighted FS FSE and axial PD weighted fat saturated FSE. COMPARISON: None. FINDINGS: Medial compartment: There is medial extrusion of the medial meniscal body. There is a small linear horizontal tear at the medial meniscal body which extends to the superior articular surface anteriorly, crossing the free e dge at the midportion of the meniscal body contacting the inferior articular surface in the posterior meniscal body. The central aspect of the posterior horn of the medial meniscus is small suggesting e ither a radial tear with architectural distortion distracting the tear margins or complex tear with s econdary loss of meniscal tissue. Partial-thickness chondral ulceration along the anterior to central weightbearing medial femoral condyle with partial thickness cartilage loss and scattered chondral carrasco rface regularity most prominent anterior band at the lateral aspect of the central weightbearing medi al femoral condyle. Cartilage along the medial tibial plateau appears relatively preserved. Lateral compartment: There is lateral extrusion of the lateral meniscal body. Complex tear with macerated appearance of th e anterior horn with a few very small para meniscal cysts along its peripheral margin. Additional mor e subtle complex tear contacting the intra-articular surface at a few locations in the posterior horn and with more amorphous increased signal involving the inner third of the intervening meniscal body. Deep chondral ulceration along the posterior aspect of the lateral tibial plateau. Mild partial-thic kness cartilage loss with some chondral surface regularity along the central weightbearing lateral fe moral condyle. Patellofemoral compartment: Partial-thickness chondral ulceration and scattered fissuring with underlying subarticular edema-like signal change at the lateral patellar facet. Additional mild partial-thickness cartilage loss with m inimal chondral surface regularity but without degenerative subchondral changes along the lateral asp ect of the lateral trochlea. Trochlear dysplasia with very shallow, nearly flat trochlear groove. Ligaments and tendons: Anterior and posterior cruciate ligaments are normal. The fibular ligament complex is normal. There i s mild thickening and minimal increased signal the proximal medial collateral ligament without surrou nding edema consistent with mild scarring related to chronic sprain. The extensor mechanism is normal . The visualized medial and lateral hamstring tendons as well as the iliotibial band are normal. Fluid: Minimal right knee joint effusion. No loose osteochondral bodies identified. Large Martines's cyst measu ring 6.1 x 2.3 x 2.4 cm. Osseous/other: No fracture or pathologic marrow replacing process. No fracture or pathologic marrow replacing proces s. IMPRESSION: 1. Complex medial and lateral meniscal tears. 2. Mild tricompartmental osteoarthritis with moderate grade chondromalacia in all 3 compartments and small regions of high-grade patellar chondromalacia. 3. 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 4. Large Martines's cyst. Reviewed, dictated and finalized at location B. IMPRESSION: 1. Complex medial and lateral meniscal tears. 2. Mild tricompartmental osteoarthritis with moderate grade chondromalacia in a ll 3 compartments and small regions of high-grade patellar chondromalacia. 3. 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
== END ==
PROVIDERS: PCP Physician Assistant; Visit Provider Physician Assistant
DX: S83.271A Complex tear of lateral meniscus, current injury, right knee, initial encounter (principal); S83.231A Complex tear of medial meniscus, current injury, right knee, initial encounter; X58.XXXA Exposure to other specified factors, initial encounter; M17.11 Unilateral primary osteoarthritis, right knee; M71.21 Synovial cyst of popliteal space [Baker], right knee
CPT/HCPCS: 73721

== ENCOUNTER 2023-10-21 12:06 | Emergency (ER) | payer MEDICARE, SELFPAY ==
--- NOTE | ~2023-10-21 | CT_ITS ---
EXAMINATION: CT cervical spine wo con DATE: 10/21/2023 14:31 INDICATION: Fall TECHNIQUE: Computed tomography (CT) of the cervical spine was performed without intravenous contrast. Automated exposure control and iterative reconstruction technique were employed. The dose-length pro duct was 155.29 mGy-cm. COMPARISON: 10/09/2020. FINDINGS: Vertebral Body Alignment: Intact. Craniocervical and atlantoaxial alignment: Moderate degenerative change. Alignment intact. Osseous structures/fracture: No evidence of a lytic or blastic process in the visualized spine. No e vidence of acute fracture. Cervical soft tissues: The paraspinal soft tissues planes are maintained. Degenerative changes: Degenerative changes, without severe neural foraminal or central canal narrowin g. IMPRESSION: No acute fracture or traumatic malalignment in the cervical spine. Reviewed, dictated and finalized at location K. INUOUS IMPROVEMENT BLACK BELT
--- NOTE | ~2023-10-21 | CT_ITS ---
EXAMINATION: CT brain wo con DATE: 10/21/2023 14:31 INDICATION: Head injury . TECHNIQUE: Computed tomography (CT) of the head was performed without intravenous contrast. The mA wa s adjusted according to patient size. Iterative reconstruction technique was employed. The dose-lengt h product was 605.33 mGy-cm. COMPARISON: None. FINDINGS: No acute intracranial hemorrhage or extra-axial fluid collection. No hydrocephalus, mass, or herniation. No acute ischemic infarct. Unremarkable dural venous sinus attenuation. No acute osseous abnormality. Nodular mucosal thickening in the posterior ethmoid and sphenoid sinuses, the remaining aerated space s are clear. Mild atrophy and moderate chronic white matter change. Atherosclerotic intracranial calcification. Bi lateral lens replacements. IMPRESSION: No acute intracranial process. Reviewed, dictated and finalized at location K. ENGINEER
[2023-10-21 12:09] VITALS: BP 154/82; PULSE 78; RESP 18; TEMP 36.2; O2SAT 100
--- NOTE | 2023-10-21 15:26 | ED.FALL ---
HPI - Fall General Chief Complaint: Fall Stated Complaint: fall Time Seen by Provider: 10/21/23 13:17 History of Present Illness HPI Narrative: This is an 88-year-old female, with no significant past medical history, who presents to the emergency department a fall and head injury. The patient states she was at the [employer], when she lost her balance, falling backwards and striking the back of her head and the outstretched right. She denies loss of consciousness, weakness / numbness change/ loss of vision or persistent vomiting. She complains of 6/10 headache and 2/10 right wrist pain. She has no other complaints at this time. She does not take blood thinners. Related Data Home Medications Medication Instructions Recorded Confirmed multivitamin (Multiple Vitamins 1 tablet PO DAILY 10/19/22 11/02/22 tablet) Allergies Allergy/AdvReac Type Severity Reaction Status Date / Time ciprofloxacin [From Cipro] Allergy Mild Unknown Verified 10/21/23 12:25 Sulfa (Sulfonamide Allergy Unknown Unknown Verified 10/21/23 12:25 Antibiotics) sulfamethoxazole Allergy Nausea and Verified 10/21/23 12:25 [From Bactrim] Vomiting trimethoprim [From Bactrim] Allergy Nausea and Verified 10/21/23 12:25 Vomiting Review of Systems Review of Systems: CONSTITUTIONAL: Denies fever, chills, or sweats. CARDIOVASCULAR: Denies chest pain, palpitations, or edema. RESPIRATORY: Denies cough or dyspnea. GASTROINTESTINAL: Denies abdominal pain, nausea, vomiting, or diarrhea. GENITOURINARY: Denies dysuria or hematuria. SKIN: Denies rash or itching. MUSCULOSKELETAL: Right wrist pain Denies back pain, or myalgia. NEUROLOGIC: Headache Denies numbness, dizziness, or weakness. PSYCHIATRIC: Denies anxiety or depression. [facility] Past Medical History Medical History Bronchitis Paresthesia of bilateral legs Ulnar nerve impingement Surgical History Surgical History History of hysterectomy Family History Family History Sibling Family history of bipolar disorder Mother Acute myocardial infarction Other Family history of malignant melanoma Social History Social History Smoking status: Never smoker Second hand tobacco smoke exposure: No Alcohol intake: current Lack of Transportation: No Lack of Food: Never True Current Housing: I Have Housing Concerned About Future Housing: No Difficulty Paying Gas/Electric Bills: No Difficulty Paying for Meds: No Currently Unemployed: No Education: Master's Degree or Higher Difficulty w/ Childcare or Family Care: No Exam Narrative: GENERAL: Well-appearing, well-nourished, and in no acute distress. HEAD: Normocephalic, small abrasion is noted to the right occiput without step-off or crepitus EYES: PERRLA and EOMI. ENT: Nares clear, no rhinorrhea or epistaxis. Mucous membranes moist. Oropharynx without tonsillar hypertrophy exudate or other lesions. NECK: Supple. No midline spine tenderness to palpation, no step-off or crepitus CHEST: Clear to auscultation. No respiratory distress. No wheezes rales or rhonchi HEART: Regular rate and rhythm. No murmur heard. Normal peripheral pulses. ABDOMEN: Soft, nontender, nondistended, normal active bowel sounds. BACK: No midline spine tenderness to palpation, no step-off or crepitus EXTREMITIES: Superficial abrasion noted over the right thenar eminence. Normal range of motion of all joints. No pain or crepitus with palpation of the right wrist or hand. No edema. SKIN: Warm, dry, no rash. NEURO: Alert and oriented x3. strength 5/5 in all extremities, sensation intact bilaterally, no noted ataxia, normal gait PSYCH: Normal mood and affect. Course Course Emergency Course: 15:20 - CT head negative
[2023-10-21 15:46] VITALS: BP 174/86; PULSE 76; RESP 18; O2SAT 99
== END 2023-10-21 15:49 | disposition home or self-care (01) ==
PROVIDERS: Emergency Provider Preventive Medicine Aerospace Medicine; PCP Physician Assistant
DX: S06.0X0A Concussion without loss of consciousness, initial encounter (principal); S00.03XA Contusion of scalp, initial encounter; W19.XXXA Unspecified fall, initial encounter
CPT/HCPCS: 70450; 72125; 99284

== ENCOUNTER 2024-01-19 15:16 | Outpatient (CLI) | payer MEDICARE, SELFPAY ==
--- NOTE | ~2024-01-19 | MM_ITS ---
EXAMINATION: MM screening brandon BI w layo HISTORY: Screening mammogram TECHNIQUE: Craniocaudal and mediolateral oblique 3-D tomosynthesis images were obtained and synthetic 2-D images were generated. CAD analysis was submitted and interpreted. COMPARISON: 11/01/2022, 09/22/2020 bilateral screening mammogram examinations BREAST PARENCHYMAL COMPOSITION: There are scattered areas of fibroglandular density. FINDINGS: There is no evidence of suspicious mass, calcification, or architectural distortion to sugg est malignancy in either breast. There has been no suspicious interval change. IMPRESSION: 1. No mammographic evidence of malignancy. 2. Recommend routine screening mammography in one year. BI-RADS Category 1: Negative Reviewed, dictated and finalized at location A. ER LAUNDRY ARTICLES
== END 2024-01-19 15:17 | disposition home or self-care (01) ==
LOC: ANHIMG 15:20
PROVIDERS: PCP Physician Assistant; Visit Provider Physician Assistant
DX: Z12.31 Encounter for screening mammogram for malignant neoplasm of breast (principal)
CPT/HCPCS: 77063; 77067

== ENCOUNTER 2024-02-02 18:03 | Emergency (ER) | payer MEDICARE, SELFPAY ==
--- NOTE | ~2024-02-02 | XR_ITS ---
EXAMINATION: XR lumbar spine 2-3V DATE: 02/02/2024 18:55 INDICATION: Low back pain TECHNIQUE: Anteroposterior and lateral views of the lumbar spine, and cone-down lateral view of the l umbosacral junction were obtained. COMPARISON: CT, 06/18/2021 FINDINGS: Bone alignment is normal. There is no fracture. The lumbar vertebral body heights are maint ained. There is mild loss of intervertebral disc space height at L1-2. There is moderate facet joint osteoarthritis of the lower lumbar spine. Calcified atherosclerosis is noted. IMPRESSION: 1. Mild to moderate lumbar spondylosis without acute findings. Reviewed, dictated and finalized at location F.
--- NOTE | ~2024-02-02 | CT_ITS ---
EXAMINATION: CT cervical spine wo con DATE: 02/02/2024 18:44 INDICATION: Head injury TECHNIQUE: Computed tomography (CT) of the cervical spine was performed without intravenous contrast. The dose-length product (DLP) was 162.20 mGy-cm. Automated exposure control and iterative reconstruc tion technique were employed. COMPARISON: 10/21/2023 FINDINGS: There are 2 mm of anterolisthesis of C4 on C5. There is no fracture. The odontoid process i s intact. There is moderate loss of intervertebral disc space height at C5-6. There is multilevel mod erate facet and uncovertebral joint osteoarthritis. The vertebral body heights are maintained. IMPRESSION: 1. Mild/moderate cervical spondylosis without acute findings or significant interval change. Reviewed, dictated and finalized at location F. IMPRESSION: 1. Mild/moderate cervical spondylosis without acute findings or significant int erval change.
--- NOTE | ~2024-02-02 | XR_ITS ---
EXAMINATION: XR thoracic spine 3V DATE: 02/02/2024 18:55 INDICATION: Back pain after fall TECHNIQUE: AP, lateral and lateral swimmer's views of the thoracic spine were obtained. COMPARISON: None. FINDINGS: Bone alignment is normal. There is no fracture. The vertebral body heights are maintained. There is moderate loss of intervertebral disc space height throughout the thoracic spine. Small degen erative osteophytes project from the anterior endplates of multiple vertebral bodies. IMPRESSION: 1. Moderate thoracic spondylosis without acute findings. Reviewed, dictated and finalized at location F.
--- NOTE | ~2024-02-02 | CT_ITS ---
EXAMINATION: CT brain wo con INDICATION: Head injury COMPARISON: 10/21/2023 TECHNIQUE: Standard unenhanced head CT. The dose-length product (DLP) was 605.33 mGy-cm. The mA was a djusted according to patient size. Iterative reconstruction technique was employed. FINDINGS: No acute intraparenchymal hemorrhage. No evidence of mass lesion. No evidence of acute infa rction. There is mild periventricular and subcortical hypodensity probably related to small vessel is chemic disease. There is mild prominence of the sulci and ventricles related to cerebral atrophy. Int racranial calcified cerebral atherosclerosis is noted. No extra-axial collections. No mass effect or midline shift. Changes in the globes are likely from ocular lens surgery. There is mild mucosal thick ening of the paranasal sinuses. IMPRESSION: 1. No acute intracranial abnormality. 2. Age related findings. Reviewed, dictated and finalized at location F.
[2024-02-02 18:08] VITALS: BP 151/79; PULSE 92; RESP 16; TEMP 36.3; O2SAT 100
--- NOTE | 2024-02-02 18:14 | ED.HEATRA ---
HPI - Head Injury General Chief complaint: Head Injury Stated complaint: fall, hit back of head Time Seen by Provider: 02/02/24 18:11 Source: patient Mode of arrival: ambulatory Limitations: no limitations History of Present Illness HPI Narrative: Patient is an 89-year-old female who presents the ED with report of head injury. Patient reports she was playing with her grandson when she tripped and fell backwards. She hit her posterior head on the ground. Denied LOC. She complains of pain to her posterior neck. Denies significant head pain. Denies back pain. She did also sustain an abrasion to her right lower leg. Tetanus unknown. Patient placed in c-collar upon arrival. patient is on any blood thinners. Denies dizziness, lightheadedness, nausea, vision changes. Related Data Home Medications Medication Instructions Recorded Confirmed multivitamin (Multiple Vitamins 1 tablet PO DAILY 10/19/22 11/02/22 tablet) Allergies Allergy/AdvReac Type Severity Reaction Status Date / Time ciprofloxacin [From Cipro] Allergy Mild Unknown Verified 10/21/23 12:25 Sulfa (Sulfonamide Allergy Unknown Unknown Verified 10/21/23 12:25 Antibiotics) sulfamethoxazole Allergy Nausea and Verified 10/21/23 12:25 [From Bactrim] Vomiting trimethoprim [From Bactrim] Allergy Nausea and Verified 10/21/23 12:25 Vomiting Review of Systems Review of Systems: CONSTITUTIONAL: Denies fever, chills, or sweats. ENT: Denies Vision changes CARDIOVASCULAR: Denies chest pain. RESPIRATORY: Denies dyspnea. GASTROINTESTINAL: Denies abdominal pain, nausea, vomiting. MUSCULOSKELETAL: See HPI. NEUROLOGIC: See HPI. All systems reviewed & are unremarkable except as noted in HPI and below PMFSH Past Medical History Medical History Bronchitis Paresthesia of bilateral legs Ulnar nerve impingement Surgical History Surgical History History of hysterectomy Family History Family History Sibling Family history of bipolar disorder Mother Acute myocardial infarction Other Family history of malignant melanoma Social History Social History Smoking status: Never smoker Second hand tobacco smoke exposure: No Alcohol intake: current Lack of Transportation: No Lack of Food: Never True Current Housing: I Have Housing Concerned About Future Housing: No Difficulty Paying Gas/Electric Bills: No Difficulty Paying for Meds: No Currently Unemployed: No Education: Master's Degree or Higher Difficulty w/ Childcare or Family Care: No Exam Narrative: GENERAL: elderly, well-nourished, non-toxic, in no acute distress. HEAD: Normocephalic, atraumatic. No significant contusions. NECK: C-collar in place. Mild bilateral paraspinal muscle tenderness. No significant midline spinal tenderness. RESPIRATORY: Airway patent, respirations nonlabored. Clear to auscultation bilaterally, no rales, rhonchi, wheezing. CARDIOVASCULAR: Regular rate and rhythm MUSCULOSKELETAL: Moves all extremities. No gross deformities. no significant tenderness throughout midline thoracic or lumbar spine. SKIN: Warm, dry, normal color. Small circular skin tear to R lateral calf, no active bleeding. NEURO: A&O X3. Speech clear. PSYCHIATRIC: Appropriate mood and affect. Normal interaction. Course Vital Signs Vital signs: Vital Signs Temperature 97.4 F L 02/02/24 18:08 Pulse Rate 92 02/02/24 18:08 Respiratory Rate 16 02/02/24 18:08 Blood Pressure 151/79 H 02/02/24 18:08 Pulse Oximetry 100 02/02/24 18:08 Temperature 97.4 F L 02/02/24 18:08 Pulse Rate 78 02/02/24 19:33 Respiratory Rate 18 02/02/24 19:33 Blood Pressure 163/76 H 02/02/24 19:33 Pulse Oximetry 100 03
[2024-02-02] MEDS: TETANUS,DIPHTHERIA,AC PERTUSSIS ADULT (0.5 ML) BOOSTRIX IM (18:23)
--- NOTE | 2024-02-02 19:22 | PC.NURSE ---
Addendum entered by Krupa Marx RN 02/02/24 19:23: took report from RENETTA Carrasco not RENETTA Vargas. Original Note: this rn assumed care of patient. this rn took patient report from RENETTA Vargas.
[2024-02-02 19:33] VITALS: BP 163/76; PULSE 78; RESP 18; O2SAT 100
[2024-02-02 20:17] VITALS: BP 153/71; PULSE 78; RESP 20; O2SAT 98
== END 2024-02-02 20:43 | disposition home or self-care (01) ==
LOC: ANHED 20:25
PROVIDERS: Emergency Provider Physician Assistant; PCP Physician Assistant
DX: S09.90XA Unspecified injury of head, initial encounter (principal); S16.1XXA Strain of muscle, fascia and tendon at neck level, initial encounter; Z23 Encounter for immunization; Z90.710 Acquired absence of both cervix and uterus; M47.812 Spondylosis without myelopathy or radiculopathy, cervical region; M47.816 Spondylosis without myelopathy or radiculopathy, lumbar region; M47.814 Spondylosis without myelopathy or radiculopathy, thoracic region; W01.0XXA Fall on same level from slipping, tripping and stumbling without subsequent striking against object, initial encounter
CPT/HCPCS: 70450; 72072; 72100; 72125; 90471; 90715; 99284

== ENCOUNTER 2024-03-11 13:32 | Outpatient (CLI) | payer MEDICARE, SELFPAY ==
[2024-03-11 16:38] LABS: Basophils Percent Auto 0.6 % (0.2-1.2); Eosinophils Absolute Auto 0.1 K/mm3 (0-0.3); Eosinophils Percent Auto 1.1 % (0-4.4); Hematocrit 44.1 % (37.0-47.0); Hemoglobin 14.2 g/dL (12.0-15.0); Immature Granulocyte Absolute 0.01 K/mm3 (0.00-0.031); Immature Granulocyte Percent A 0.1 % (0-0.5); Lymphocytes Absolute Auto 3.42 K/mm3 (0.9-3.2); Lymphocytes Percent Auto 48.5 % (18.3-44.2); Mean Corpuscular HGB Conc 32.2 g/dl (32-36); Mean Corpuscular Hemoglobin 33.3 pg (26-34); Mean Corpuscular Volume 103.3 fl (80-100); Mean Platelet Volume 9.2 fl (7.4-10.4); Monocytes Absolute Auto 0.4 K/mm3 (0.1-0.6); Monocytes Percent Auto 5.5 % (2.6-8.5); Neutrophils Absolute Auto 3.1 K/mm3 (1.3-6.7); Neutrophils Percent Auto 44.2 % (45.5-73.1); Platelet Count Result 254 k/mm3 (150-375); Red Blood Count 4.27 M/mm3 (4.2-5.4); Red Cell Distribution Width 13.7 % (11.5-14.5); White Blood Count 7.1 K/mm3 (4.5-10.0)
[2024-03-11 16:40] LABS: Appearance Urine Clear (Clear); Bilirubin Urine Negative (Negative); Blood Urine Negative (Negative); Color Urine Yellow (Yellow); Glucose Urine UA Negative (Negative); Ketones Urine Negative (Negative); Leukocyte Esterase Ur Negative LEU/UL (Negative); Nitrate Urine Negative (Negative); Protein Urine Negative (Negative); Specific Grav Ur 1.014 (1.001-1.035); Urobilinogen Urine 0.2 mg/dL (<2.0)
[2024-03-11 16:58] LABS: Add Urine Microscopic? NO
[2024-03-11 17:06] LABS: Alanine Aminotransferase 30 U/L (6-35); Albumin Level 4.2 g/dL (3.5-5.1); Alkaline Phosphatase 66 U/L (38-126); Anion Gap 4 mmol/L (4-12); Aspartate Amino Transferase 56 U/L (14-36); Bilirubin,Total 0.6 mg/dL (0.2-1.3); Blood Urea Nitrogen 21 mg/dL (7-17); Calcium 9.4 mg/dL (8.4-10.2); Carbon Dioxide 28 mmol/L (22-30); Chloride 107 mmol/L (98-107); Cholesterol 236 mg/dL (0-200); Estimated Glomerular Filt Rate > 60; Glucose 94 mg/dL (65-110); HDL Direct 75 mg/dL; Potassium 4.3 mmol/L (3.4-5.0); Sodium 139 mmol/L (137-145); Triglycerides 115 mg/dL (<150)
[2024-03-11 17:18] LABS: LDL Cholesterol Direct 129 mg/dL
== END 2024-03-11 13:33 | disposition home or self-care (01) ==
PROVIDERS: PCP Physician Assistant; Visit Provider Physician Assistant
DX: Z13.220 Encounter for screening for lipoid disorders (principal); Z79.899 Other long term (current) drug therapy
CPT/HCPCS: 36415; 80048; 80061; 80076; 81003; 84443; 85025

== ENCOUNTER 2024-03-19 09:23 | Outpatient (CLI) | payer MEDICARE, SELFPAY ==
--- NOTE | ~2024-03-19 | US_ITS ---
EXAMINATION: US abdomen complete DATE: 03/19/2024 09:47 INDICATION: Upper abdominal pain TECHNIQUE: Multiple grayscale and Doppler ultrasound images of the abdomen were obtained. COMPARISON: None FINDINGS: The pancreatic head and body are normal in appearance. The pancreatic tail is not visualized. Liver has normal echogenicity and contour, with a smooth surface. No liver lesion identified. No intrahepat ic biliary duct dilation suspected. Portal venous flow was seen in the hepatopetal, normal direction and has normal Doppler waveform. Visualized proximal to mid inferior vena cava is normal. Abdominal a evan is normal in caliber measuring 2.1 proximally tapering to 1.5 cm mid aorta and 1.6 cm the distal aorta. The gallbladder is normal in appearance. There is no cholelithiasis. The common bile duct me asures 4 mm, which is normal. Sonographic Adrian sign was reported as negative by the licensed mortgage loan officer. Th ere is normal renal contour and echogenicity bilaterally. The right kidney measures 8.9 x 3.4 x 3.8 c m and the left 10.6 x 4.2 x 4.8 cm. And 1.6 similar simple appearing anechoic cyst at the lower pole the left kidney and additional anechoic 2.0 cm parapelvic cyst at the left renal hilum. There is no h ydronephrosis. Spleen is normal measuring 7.1 cm in maximal length. IMPRESSION: 1. A couple left renal cyst. Otherwise normal abdominal ultrasound. Reviewed, dictated and finalized at location A.
== END 2024-03-19 09:24 ==
LOC: GOSHIMG 09:25
PROVIDERS: PCP Physician Assistant; Visit Provider Physician Assistant
DX: N28.1 Cyst of kidney, acquired (principal)
CPT/HCPCS: 76700

== ENCOUNTER 2024-07-16 16:07 | Outpatient (CLI) | payer MEDICARE, SELFPAY ==
--- NOTE | ~2024-07-16 | XR_ITS ---
XR hip LT min 2V 07/16/2024 16:22 Indication: Left hip pain Procedure: 2 views left hip Comparison: No prior studies for comparison. Findings: There is anatomic alignment. There is mild osteoarthritis of the left hip. No fracture, sub luxation or dislocation. No significant soft tissue abnormality. Impression: 1: Mild osteoarthritis of the left hip. Reviewed, dictated and finalized at location B. Impression: 1: Mild osteoarthritis of the left hip.
== END 2024-07-16 16:08 | disposition home or self-care (01) ==
PROVIDERS: PCP Physician Assistant; Visit Provider Physician Assistant
DX: M16.12 Unilateral primary osteoarthritis, left hip (principal)
CPT/HCPCS: 73502

== ENCOUNTER 2024-07-23 08:49 | Outpatient (CLI) | payer MEDICARE, SELFPAY ==
--- NOTE | ~2024-07-23 | CT_ITS ---
EXAMINATION: CT brain wo con DATE: 07/23/2024 09:17 INDICATION: Closed head injury post fall one-2 weeks prior. TECHNIQUE: Computed tomography (CT) of the head was performed without intravenous contrast. Sagittal and coronal reconstructions were performed. The mA was adjusted according to patient size. Iterative reconstruction technique was employed. The dose-length product was 645.69 mGy-cm. COMPARISON: head CT dated 01/13/24 FINDINGS: No fracture. No acute intracranial hemorrhage, acute infarction or abnormal extra axial fluid collect ion. There is moderate scattered white matter hypoattenuation consistent with chronic small vessel is chemic disease. Symmetric prominence of the sulci consistent with mild age-appropriate diffuse cerebr al volume loss. Ventricles are normal and symmetric. No mass/mass effect. Changes of bilateral intrao cular lens replacement. The orbits and mastoid air cells are normal. Mucosal thickening in the left s phenoid sinus. IMPRESSION: 1. Normal aging brain with moderate scattered white matter hypoattenuation likely sequela of chronic small vessel ischemic disease. No fracture or acute intracranial process. Reviewed, dictated and finalized at location B. IMPRESSION: 1. Normal aging brain with moderate scattered white matter hypoattenuation like ly sequela of chronic small vessel ischemic disease. No fracture or acute intra cranial process.
== END 2024-07-23 08:50 | disposition home or self-care (01) ==
LOC: GOSHIMG 08:50
PROVIDERS: PCP Physician Assistant; Visit Provider Physician Assistant
DX: S09.90XA Unspecified injury of head, initial encounter (principal); R90.82 White matter disease, unspecified; W19.XXXA Unspecified fall, initial encounter
CPT/HCPCS: 70450

== ENCOUNTER 2024-07-25 13:39 | Outpatient (CLI) | payer MEDICARE, SELFPAY ==
--- NOTE | ~2024-07-25 | XR_ITS ---
EXAMINATION: XR thoracic spine 2V, XR lumbar spine 2-3V DATE: 07/25/2024 14:03 INDICATION: Thoracic and lumbar back pain TECHNIQUE: 1. One AP, lateral and lateral swimmer's views of the thoracic spine were obtained. 2. AP, lateral and lateral lumbosacral views of the lumbar spine were obtained. COMPARISON: None. FINDINGS: 17 degree thoracolumbar levoscoliosis measured between T9 and L2 and 16 degrees compensatory dextrosc oliosis between L2 and L5. There is also mild thoracolumbar kyphosis. Vertebral body heights are norm al. There is moderate to severe disc height loss at T12-L1 and L1-L2. Moderate disc height loss at T6 -T7 through T8-T9 and at T11-T12 with mild disc height loss at remaining thoracic levels and at L2-L3 . Moderate severity lower lumbar facet osteoarthritis and mild bilateral sacroiliac osteoarthritis. V isualized portions of the lungs are clear with no pleural effusion or pneumothorax. Calcified mediast inal and bilateral hilar lymph nodes consistent with old granulomatous disease. Heart size is normal. IMPRESSION: 1. Mild S-shaped curvature of the lumbar and lower thoracic spine with moderate to severe spondylosis centered at the thoracolumbar junction. Reviewed, dictated and finalized at location B. IMPRESSION: 1. Mild S-shaped curvature of the lumbar and lower thoracic spine with moderate to severe spondylosis centered at the thoracolumbar junction.
== END 2024-07-25 13:40 | disposition home or self-care (01) ==
PROVIDERS: PCP Physician Assistant; Visit Provider Physician Assistant
DX: M43.8X6 Other specified deforming dorsopathies, lumbar region (principal); M43.8X4 Other specified deforming dorsopathies, thoracic region; M47.895 Other spondylosis, thoracolumbar region
CPT/HCPCS: 72070; 72100

== ENCOUNTER 2024-08-09 10:29 | Outpatient (CLI) | payer MEDICARE, SELFPAY ==
--- NOTE | ~2024-08-09 | DEXA_ITS ---
Bone Density Report Name: LI MARTINES Age: 89 Sex: Female Ethnicity: White Date of : 1935 Indication: postmenopausal; screening for osteoporosis; height loss; hysterectomy; Referring Provider: BENJAMIN, ZELALEM Study: Bone densitometry was performed. Exam Date: August 09, 2024 Accession number: [id number] Bone Density: Region BMD T-score Z-score Classification AP Spine(L1-L4) 0.894 -1.4 1.5 Osteopenia Femoral Neck (Left) 0.639 -1.9 0.6 Osteopenia Total Hip (Left) 0.811 -1.1 1.3 Osteopenia Femoral Neck (Right) 0.587 -2.4 0.2 Osteopenia Total Hip (Right) 0.785 -1.3 1.0 Osteopenia Total Hip Mean 0.798 -1.2 1.2 Osteopenia World Health Organization criteria for BMD impression classify patients as: Normal (T-score at or above -1.0), Osteopenia (T-score between -1.0 and -2.5), or Osteoporosis (T-score at or below -2.5). 10-year Fracture Risk(1): Major Osteoporotic Fracture 16% Hip Fracture 5.6% Reported Risk Factors: [place] (), Neck BMD=0.587, BMI=24.3 (1) FRAX(R) Version 3.08. Fracture probability calculated for an untreated patient. Fracture probability may be lower if the patient has received treatment. Clinical Information Provided by Patient: Has used the following medications: Vitamin D Has the following medical conditions: Hysterectomy Patient maximum height was 65 Menopause Age: 32 Drinks caffeinated beverages Onset of menses at age 13 Number of children 4 Impression: The patient has low bone mass, based on the Right Femoral Neck T-score. The patient has an estimated ten-year risk of hip fracture of 5.6% and an estimated ten-year risk of major fracture of 16%, based on the WHO FRAX algorithm. Discussion: BONE DENSITY IS LOW AT ONE OR MORE SKELETAL SITES. THE PATIENT'S BMD AND CLINICAL RISK FACTORS CONTRIBUTE TO THIS PATIENT'S INCREASED RISK OF FRACTURE. This patient's lowest T-score is low at one or more skeletal sites. It meets the World Health Organization's (WHO) criteria for ?low bone mass? (T-score between -1.0 and -2.5). The patient's 10-year risk of hip fracture as calculated by FRAX exceeds the threshold where pharmacological therapy is recommended by the National Osteoporosis Foundation (NOF). However, all treatment decisions require clinical judgment and consideration of individual patient factors, including patient preferences, comorbidities, previous drug use, risk factors not captured in the FRAX model (e.g., frailty, falls, vitamin D deficiency, increased bone turnover, interval significant decline in bone density) and possible under or overestimation of fracture risk by FRAX. The patient should follow a healthful lifestyle (good nutrition with adequate calcium and vitamin D, and appropriate weight-bearing exercise). Follow-Up: Co
== END 2024-08-09 10:30 | disposition home or self-care (01) ==
LOC: ANHIMG 10:30
PROVIDERS: PCP Physician Assistant; Visit Provider Physician Assistant
DX: M81.0 Age-related osteoporosis without current pathological fracture (principal); M85.89 Other specified disorders of bone density and structure, multiple sites; Z13.820 Encounter for screening for osteoporosis
CPT/HCPCS: 77080

== ENCOUNTER 2024-11-26 12:55 | Outpatient (CLI) | payer MEDICARE, SELFPAY ==
[2024-11-26 13:25] LABS: Basophils Percent Auto 0.4 % (0.2-1.2); Eosinophils Absolute Auto 0.1 K/mm3 (0-0.3); Eosinophils Percent Auto 1.7 % (0-4.4); Hematocrit 43.5 % (37.0-47.0); Hemoglobin 14.3 g/dL (12.0-15.0); Immature Granulocyte Absolute 0.01 K/mm3 (0.00-0.031); Immature Granulocyte Percent A 0.1 % (0-0.5); Lymphocytes Absolute Auto 3.58 K/mm3 (0.9-3.2); Lymphocytes Percent Auto 45.7 % (18.3-44.2); Mean Corpuscular HGB Conc 32.9 g/dl (32-36); Mean Corpuscular Hemoglobin 32.2 pg (26-34); Monocytes Absolute Auto 0.6 K/mm3 (0.1-0.6); Monocytes Percent Auto 7.1 % (2.6-8.5); Neutrophils Absolute Auto 3.5 K/mm3 (1.3-6.7); Platelet Count Result 217 k/mm3 (150-375); Red Blood Count 4.44 M/mm3 (4.2-5.4); Red Cell Distribution Width 13.5 % (11.5-14.5); White Blood Count 7.8 K/mm3 (4.5-10.0)
[2024-11-26 15:16] LABS: Alanine Aminotransferase 28 U/L (6-35); Alkaline Phosphatase 73 U/L (38-126); Anion Gap 6 mmol/L (4-12); Aspartate Amino Transferase 31 U/L (14-36); Bilirubin,Total 0.7 mg/dL (0.2-1.3); Blood Urea Nitrogen 26 mg/dL (7-17); Calcium 9.1 mg/dL (8.4-10.2); Carbon Dioxide 28 mmol/L (22-30); Chloride 105 mmol/L (98-107); Estimated Glomerular Filt Rate > 60; Glucose 92 mg/dL (65-110); Potassium 4.9 mmol/L (3.4-5.0); Sodium 139 mmol/L (137-145)
[2024-11-26 15:45] LABS: Free T4 Free Thyroxine 0.91 ng/dL (0.78-2.19)
[2024-11-26 16:47] LABS: Folic Acid > 20.0 ng/mL (2.76->20); Vitamin B12 > 1000.0 pg/mL (239-931)
== END 2024-11-26 12:56 | disposition home or self-care (01) ==
LOC: ANHLAB 13:01
PROVIDERS: PCP Physician Assistant; Visit Provider Internal Medicine
DX: R41.3 Other amnesia (principal); Z79.899 Other long term (current) drug therapy
CPT/HCPCS: 36415; 80048; 80076; 82607; 82746; 84439; 84443; 85025

== ENCOUNTER 2024-12-10 09:56 | Outpatient (CLI) | payer MEDICARE, SELFPAY ==
--- NOTE | ~2024-12-10 | MR_ITS ---
EXAMINATION: MR brain/brain stem wo/w con DATE: 12/10/2024 10:32 INDICATION: Memory impairment TECHNIQUE: Magnetic resonance imaging (MRI) of the brain and brainstem was performed without and with 12 mL Multihance intravenous contrast. Sequences included sagittal and axial T1-weighted SE, axial d iffusion-weighted FS SE, axial T2*-weighted GRE, axial T2-weighted FLAIR, and axial T2-weighted FSE. Postcontrast axial and coronal T1-weighted SE was obtained. Apparent diffusion coefficient (ADC) maps were created. COMPARISON: Head CT dated 07/23/2024 FINDINGS: There are no areas of restricted diffusion to suggest acute infarction. No intracranial hemorrhage or abnormal intracranial mass lesion. There are scattered areas of nonspecific increased T2-weighted si gnal intensity in the cerebral white matter, predominantly involving the deep and periventricular whi te matter. There are no intraparenchymal signal abnormalities seen on the other pulse sequences. The ventricles are symmetric and normal in size. There are no abnormal extra-axial fluid collections. Pramod w voids are seen in the cerebral arteries on the T2-weighted sequences consistent with their expected patency. Mild mucosal thickening the bilateral ethmoid sinuses. Changes of bilateral intraocular regla s replacement. Visualized orbits and soft tissues are unremarkable. There are no areas of abnormal e nhancement on the post contrast images. IMPRESSION: 1. No acute intracranial process. 2. Moderate scattered nonspecific periventricular predominant white matter T2 hyperintensity which is within normal limits for age and likely sequela of chronic small vessel ischemic disease. Reviewed, dictated and finalized at location B. OF TRAINING AND DEVELOPMENT IMPRESSION: 1. No acute intracranial process. 2. Moderate scattered nonspecific periventricular predominant white matter T2 h yperintensity which is within normal limits for age and likely sequela of chron ic small vessel ischemic disease.
== END 2024-12-10 09:57 | disposition home or self-care (01) ==
LOC: MICIMG 09:57
PROVIDERS: PCP Physician Assistant; Visit Provider Physician Assistant
DX: R41.3 Other amnesia (principal); R90.82 White matter disease, unspecified
CPT/HCPCS: 70553; A9577

== ENCOUNTER 2025-03-03 12:23 | Outpatient (CLI) | payer MEDICARE, SELFPAY ==
[2025-03-03 13:13] LABS: Add Urine Microscopic? YES; Appearance Urine Clear (Clear); Bacteria Urine None Seen /hpf; Bilirubin Urine Negative (Negative); Blood Urine Negative (Negative); Color Urine Yellow (Yellow); Glucose Urine UA Negative (Negative); Ketones Urine Negative (Negative); Leukocyte Esterase Ur Trace LEU/UL (Negative); Nitrate Urine Negative (Negative); Non Pathogenic Casts 0-2; Protein Urine Negative (Negative); RBC Urine 0-2 /hpf (0-2); Specific Grav Ur 1.016 (1.001-1.035); Squamous Epithelial Cell Urine None Seen /hpf (Few); Urobilinogen Urine 0.2 mg/dL (<2.0); WBC Urine 0-5 /hpf (0-3); pH Urine 6.5 (5.0-9.0)
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
--- OUTSIDE RECORDS SUMMARY | 2025-03-03 13:52 | XMS_ITS | Clinical Summary ---
Author Organization [facility] Address [address] [place] [address] Care Team Providers Care Tag Writer Name Role Phone Fern Wilson Primary Care Pr ovider Source Comments [facility],non-owned Affiliates and Associated Physician Practices is amultiple site organization consisting of ambulatory clinics and hospital sitesin [place], [place], [place] and [place]. This disclosure is being madepursuant to the Care Everywhere program and may not contain all information available regarding this patient. Last updated 18.[facility] Allergies Active Allergy Reactions Criticality Noted Date Comments Sulfamethoxazole W-Trimethoprim Nausea and/or Vomiting 09/18/2019 Ciprofloxacin Diarrhea,GI Discomfort,Neuropat hy,Myalgias High 08/03/2016 Reaction: GI Levofloxacin Diarrhea Low 04/29/2024 GI Reaction Nitrofurantoin Nausea and/or Vomiting,Vomiting Low 07/11/2016 Reaction: GI, Sulfa Drugs Nausea and/or Vomiting 09/18/2019 Medications * Be aware that medications may not be up to date on this document. Alwaysverify current medications with the patient. fluorouracil (Efudex) 5 % creamIndications: Actinic keratosis Apply to affected area twice daily for two weeks. 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 30 g 1 3 Active Cholecalciferol 50 MCG (2000 UT) Take 1 (one) tablet by mouth at bedtime Active estradiol (Estrace) 0.1 MG/GM vaginal cream 4 Active silver sulfADIAZINE (Silvadene) 1 % cream 4 Active triamcinolone acetonide (Kenalog) 0.025 % ointment APPLY TOPICALLY TO THE AFFECTED AREA TWICE DAILY 4 Active ALPRAZolam (Xanax) 0.25 MG tablet Take 1 (one) tablet by mouth 3 times daily 4 Active Active Problems Problem Noted Date Diagnosed Date Age-related osteoporosis wit hout current pathological fracture 08/20/2024 Pain in thoracic spine 08/20/2024 Vertigo 03/18/2024 03/18/2024 Gastroesophageal reflux disease 03/18/2024 03/18/2024 Neuropathy 03/18/2024 03/18/2024 Hiatal hernia 03/18/2024 03/18/2024 Vaginal atrophy 10/16/2023 03/18/2024 Urethral caruncle 10/16/2023 03/18/2024 Pelvic floor dysfunction in female 10/16/2023 03/18/2024 Tear of meniscus of knee 03/08/2023 023 Pain in left hip 10/05/2022 Unilateral primary osteoarthritis, right knee Hyperlipidemia 06/17/2022 06/12/2023 Sensorineural hearing loss (SNHL) of both ears 1 Intracerebral hemorrhage, intraventricular 10/11 Allergic rhinitis 12/02/2019 Osteopenia 12/02/2019 Tenderness of temporomandibular joint 12/02/2019 Prolapsed urethral mucosa 07/01/2016 Resolved Problems Problem Noted Date Diagnosed Date Resolved Date Depression 03/18/2024 03/18/2024 06/13/2024 Anxiety disorder 03/18/2024 03/18/2024 06/13/2024 Mild major depression 06/17/2022 06/12/20232023 Benign paroxysmal positional vertigo of left ear 08/31/2021 07/27/2023 Blepharitis 12/02/2019 07/27/2023 Immunizations Immunization Administration Dates Next Due INFLUENZA VACCINE 09/13/2019 Family History Medical History Relation Name Comments Cancer - Skin, Melanoma Other daughter Cancer - Skin, Non Melanoma Neg Hx Relation Name Status Comments Other daughter Social History Tobacco Use Types Packs/Day Years Used Date Smoking Tobacco: Never Smokeless Tobacco: Never Alcohol Use Standard Drinks/Week Comments Not Currently 0 (1 standard drink = 0.6 oz pur e alcohol) Comments Unknown Sex and Gender Information Value Date Recorded Sex Assigned at Not on file Legal Sex 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 Gender Identity Not on file Sexual Orientation Not on file Last Filed Vital Signs Vital Sign Reading Time Taken Comments Blood Pressure 127/97 05/06/2022 9:51 AM CDT Pulse 78 05/06/2022 9:51 AM CDT Temperature - - Respiratory Rate - - Oxygen Saturation - - Inhaled Oxygen Concentration - - Weight - - Height - - Body Mass Index - - Plan of Treatment Upcoming Encounters Date Type Department Care Team (Late st Contact Info) Description 03/04/2025 11:10 AM CDT Office Visit [facility] - Cosmetic Dermatology [address], [address] [address] Roshni Harris MD [address] [facility] [address] [address] Health Maintenance Due Date Last Done Comments BONE DENSITY TESTING 1935 DTAP/TDAP/TD VACCINES (1 - Tdap) 01/29/1956 PNEUMOCOCCAL VACCINE 50+ (1 of 1 - PCV) 1987 ZOSTER VACCINE (1 of 2) 1987 Respiratory Syncytial Virus (RSV) Vaccine Pt: or over 60 yrs (1 - 1-dose 75+ series) 01/29/2012 COVID-19 VACCINE (1 - season) 2024 DEPRESSION SCREENING 11/13/2024 MEDICARE AWV CALENDAR YEAR 2024 INFLUENZA VACCINE (Season Ended) 2025 10/11/2023, 10/16/2019, 09/13/2019, Additional history exists HEPATITIS B VACCINE Aged Out No longe r eligible based on patient's age to complete this topic HIB VACCINE Aged Out No longer eligi ble based on patient's age to complete this topic HPV VACCINE Aged Out No longer eligi ble based on patient's age to complete this topic MENINGOCOCCAL (Group B) VACCINE SHARED DECISION-MAKING Aged Out No longer eligible based on patient's age to complete this topic MENINGOCOCCAL GROUPS A/C/Y/W VACCINE Aged Out No longer eligible based on patient's age to complete this topic Insurance [employer] MEDICARE ADV Care Teams Tag Writer Relationship Specialty Start Date End Date Fern Wilson PA [address] [place] [id number] PCP - General Physician Physics Department Chair 03/12/24
--- OUTSIDE RECORDS SUMMARY | 2025-03-03 13:52 | XMS_ITS | Referral Summary ---
Author Organization [facility] Address [address] [place] [address] Care Team Providers Care Used Car Make Ready Mechanic Name Role Phone Fern Gross Primary Care [...] w/ in last 5yrs),10/11/2020 ZOSTER LIVE 07/01/2019,11/13/2010,07/15/2009 Social History Tobacco Use Types Packs/Day Years [...] on file Legal Sex Female 3:53 AM HVAC SERVICE TECHNICIAN Gender Identity Female 11/04/2020 9:21 PM HVAC SERVICE TECHNICIAN Sexual Orientation Straight 11/04/2020 9: 21 PM HVAC SERVICE TECHNICIAN Last Filed Vital Signs Vital Sign Reading [...] 09/04/2024 10:33 AM CDT Plan of Treatment Not on file Insurance [facility] Advance Directives For more information, please contact: [phone] * Full Code (Latest Code Status on File) Date Activated Date Inactivated Comments 10/10/2020 7:44 AM 10/12/2020 4:55 PM Care Teams Used Car Make Ready Mechanic Relationship Specialty Start Date End Date Fern Gross PA PCP - General 09/25/17 Fern Gross PA Referring Physician Physician Dobby Loom Chain Pegger 08/12/21
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
== END 2025-03-03 12:24 | disposition home or self-care (01) ==
LOC: ANHLAB 12:27
PROVIDERS: PCP Physician Assistant; Visit Provider Physician Assistant
DX: R39.9 Unspecified symptoms and signs involving the genitourinary system (principal)
CPT/HCPCS: 81001; 87086

== ENCOUNTER 2025-11-04 17:01 | Emergency (ER) | payer MEDICARE, SELFPAY ==
[2025-11-04 17:13] VITALS: BP 147/80; PULSE 98; RESP 16; TEMP 36.6; O2SAT 99
[2025-11-04 17:33] LABS: EDCOVIDSCREEN Negative (Negative); EDINFLUASCREEN Negative (Negative); EDINFLUBSCREEN Negative (Negative); EDSTREPNEGPOS1 Negative (Negative)
--- NOTE | 2025-11-04 17:55 | ED_ITS ---
HPI - URI/Sore Throat General Chief Complaint: Upper Respiratory Infection Stated Complaint: SORE THROAT Time Seen by Provider: 11/04/25 17:48 Source: patient and RN notes reviewed Mode of arrival: ambulatory Limitations: no limitations History of Present Illness HPI Narrative: 89-year-old female patient presents today with a 4 to five-day history of cough, sore throat, postnasal drip. She has tried tea, Tylenol, Nasacort, and Emergen- C without much relief. Denies congestion, rhinorrhea, shortness of breath, difficulty swallowing. At onset of symptoms, she was tested at a different facility for strep, COVID, and flu and were negative. Other symptoms have not improved she would like to be tested again. Related Data Home Medications ?Medication ?Instructions ?Recorded ?Confirmed ?Last Taken ?Type multivitamin (Multiple Vitamins 1 tablet PO DAILY 06/0308/25/25 Unknown History tablet) silver sulfadiazine 1 % topical 1 applic topical DAILY 07/26/24 08/25/25 Unknown History cream estradiol 0.01% (0.1 mg/gram) vaginal 11/04/25 Unknow n History vaginal cream Allergies Allergy/AdvReac Type Severity Reaction Status Date / Time ciprofloxacin (From Cipro) Allergy Mild Unknown Verified 11/04/25 17:18 Sulfa (Sulfonamide Allergy Unknown Unknown Verified 11/04/25 17:18 Antibiotics) sulfamethoxazole (From Allergy Nausea and Verified 11/04/25 17:18 Bactrim) Vomiting trimethoprim (From Bactrim) Allergy Nausea and Verified 11/04/25 17:18 Vomiting PMFSH Past Medical History Medical History Paresthesia of bilateral legs Ulnar nerve impingement Bronchitis Surgical History Surgical History Hx of eye surgery History of hysterectomy Family History Family History Sibling Family history of bipolar disorder Mother Acute myocardial infarction Other Family history of malignant melanoma Social History Social History Smoking status: Never smoker Second hand tobacco smoke exposure: No Alcohol intake: current Lack of Transportation: No Lack of Food: Never True Current Housing: I Have Housing Concerned About Future Housing: No Difficulty Paying Gas/Electric Bills: No Difficulty Paying for Meds: No Currently Unemployed: No Education: Master's Degree or Higher Difficulty w/ Childcare or Family Care: No Comments At time of signature, I have reviewed and agree with nursing past medical, surgical, social and family history unless otherwise noted. Please see nursing chart for further information. There is no relevant family history pertinent to the presenting complaint Exam Narrative: GENERAL: Well-appearing, well-nourished, and in no acute distress. HEAD: Normocephalic, atraumatic. EYES: EOMI. No redness or drainage. Conjunctivae normal. ENT: Mucous membranes pink and moist. Nares clear. No rhinorrhea. TMs normal bilaterally. Throat erythematous posteriorly with overlying clear postnasal drainage. Uvula midline. NECK: Normal AROM. Supple. No lymphadenopathy. CHEST: No respiratory distress. Clear to auscultation. HEART: Regular rate and rhythm. No murmur appreciated. EXTREMITIES: Normal range of motion. No edema. SKIN: Warm, dry, no rash. Capillary refill normal. Normal skin turgor. NEURO: No focal deficits. Alert and oriented x3. Gait steady. PSYCH: Normal affect. No signs of depression or anxiety. Course Course Level of Care: Express Care Visit Vital Signs Vital signs: Vital Signs Temperature 97.8 F 11/04/25 17:13 Pulse Rate 98 11/04/25 17:13 Respiratory Rate 16 11/04/25 17:13 Blood Pressure 147/80 H 11/04/25 17:13 Pulse Oximetry 99 11/04/25 17:13 Temperature 97.8 F 11/04/25 17:13 Pulse Rate 98 11/04/25 17:13 Respiratory Rate 16 11/04/25 17:13 Blood Pressure 147/80 H 11/04/25 17:13 Pulse Oximetry 99 11/04/25 17:13 Review MDM [facility] Narrative Medical decision making narrative: 89-year-old female patient presents today with a 4 to five-day history of cough, sore throat, postnasal drip. She has tried tea, Tylenol, Nasacort, and Emergen- C without much relief. Denies congestion, rhinorrhea, shortness of breath, difficulty swallowing. At onset of symptoms, she was tested at a different facility for strep, COVID, and flu and were negative. Other symptoms have not improved she would like to be tested again. Upon exam, patient has an erythematous throat posteriorly with overlying clear postnasal drainage. Strep, COVID, and influenza negative. Strep culture pending. Symptoms likely viral in etiology. Discussed [id number] medication use and duration of illness. No prescription medications indicated at this time. Anticipatory guidance given. Patient agrees with plan. Vital signs stable. Differential Diagnosis Differential Diagnosis: Strep throat, COVID, influenza, URI, bronchitis, pneumonia Lab Data MDM Lab Attestation statement: I personally reviewed the patient's lab results. Labs: Lab Results 11/04/25 Range/Units 17:32 POC Influenza A Ag Negative (Negative) POC Influenza B Ag Negative (Negative) POC SARS CoV-2 Ag Negative (Negative) POC Grp A Strep Screen Negative (Negative) Critical Care Time Critical Care Time Critical Care Time: No Discharge Plan Discharge Clinical Impression: Upper respiratory infection Qualifiers: URI type: unspecified URI Qualified Code(s): J06.9 - Acute upper respiratory infection, unspecified Patient Disposition: Home Condition: Stable Instructions: Upper Respiratory Infection (DC) Additional Instructions: Your influenza, COVID-19, and rapid strep swab were negative today at [facility]. You will be notified in a few days if the culture comes back positive for strep, and appropriate antibiotics will be called in for you at that time. Your symptoms are likely due to a viral illness, which is not treated with antibiotics. Viral symptoms can be present for up to 7-10 days. Take Tylenol for fever or pain. Rest and stay hydrated. Follow up with your PCP in 5 days if symptoms are not improving. Go to the ER immediately if you have any difficulty breathing or swallowing. Patient Language: Vietnamese Prescriptions: No Action estradiol 0.01 % (0.1 mg/gram) cream VAGINAL multivitamin [Multiple Vitamins] Tablet 1 tablet PO DAILY silver sulfadiazine 1 % cream 1 applic topical DAILY Rx Instructions: apply a 1.5 mm thickness Follow-up/Referrals: Ginny,MCKINLEY Shirley [Primary Care Provider, Unknown] Time of Disposition: 17:59
== END 2025-11-04 18:05 | disposition home or self-care (01) ==
PROVIDERS: Emergency Provider Nurse Practitioner; PCP Physician Assistant
DX: J06.9 Acute upper respiratory infection, unspecified (principal); Z20.822 Contact with and (suspected) exposure to COVID-19
CPT/HCPCS: 87081; 87426; 87804; 87880; 99213; G0463

== ENCOUNTER 2025-11-11 13:21 | Outpatient (CLI) | payer MEDICARE, SELFPAY ==
--- OUTSIDE RECORDS SUMMARY | 2025-11-11 13:40 | XMS_ITS | Continuity of Care Document ---
Author Organization [place] - [facility], [facility] Arnol Hobson Address [address] [place] [address] Care Team Providers Care Retail Pharmacy Technician Name Role Phone ZELALEM ALEXANDER Primary Care Provider Unavailab le Assessment No assessment recorded. Plan of Treatment Reminders Order Date Submit Date Provider Last Modified By Organization Details Last Modified Time Details Appointments None recorded. Lab CBC w/ auto diff [address] Outpatient Registration Lab/Ekg, [address], [address], 5 09:53:35 hepatic function panel, serum [address] Outpatient Registration Lab/Ekg, [address] [facility] [address], [place], [address], 5 09:53:35 BMP, serum or plasma [address] Outpatient Registration Lab/Ekg, [address] [facility] [address] [place] [address], [address], 5 09:53:35 TSH + free T4, serum [address] Outpatient Registration Lab/Ekg, [address] [facility] [address], [address], 5 09:51:26 vitamin B12 + folate, serum or blood [address] Outpatient Registration Lab/Ekg, [address] [place], [address], 5 09:51:26 lipid panel, serum [address] Outpatient Registration Lab/Ekg, [address], [place], [address], 5 09:53:35 vitamin D, 25-hydrox y, total, serum [address] [facility] Outpatient Registration Lab/Ekg, [address], [place], [address], 5 09:57:17 Referral None recorded. Procedures None recorded. Surgeries None recorded. Imaging None recorded. Medication Orders None recorded. Patient TargetsNo targets recorded. Patient InstructionsNo instructions recorded. Reason for Referral None Reported. Problems Name Problem SNOMED Code Status Onset Date Resolution Date Notes Provider Name and Address Organization Details Recorded Time Osteopenia 739770065 Active 2023 YOBANI Clinton Attn: [address] [place], [address], [place] - [facility] 4 22:32:45 Body mass index 20-24 - normal 103127385 Active 2023 Pennie Nash null, [place] [facility] 4 15:11:06 Anxiety 56015235 Active 2023 YOBANI Clinton Attn: [address] [place], [address], [place] [facility] 5 23:06:12 Epigastric pain 50478667 Active 2023 YOBANI Clinton Attn: [address] [place], [address], [place] [facility] 4 23:15:54 Dysfunction of bilateral eustachian tubes 2636224049425 100 Active 2024 YOBANI Clinton Attn: [address] [place], [address], [place] [facility] 5 23:06:07 Normal weight 23955057 Active 2024 YOBANI Clinton Attn: So franz,[address], [place], [address], [place] [facility] 5 23:31:40 Problem Notes None recorded. Procedures Surgical History Date Name Laterality Status Provider Name and Address Organization Details Recorded Time Eye Surgery completed Mary vieyra MA [place] - [facility] 02/22/2024 13:10:06 Imaging Results None recorded. Procedure Notes None recorded. Medical Equipment None Reported. Allergies Allergen ID Allergen Name Allergen Category Reaction Reaction Severity Criticality Documentation Date Start Date Code Code System Note Provider Name and Address Organization Details Recorded Time 503045 Substance with sulfonami de structure and antibacte rial mechanism of action (substanc e) medicatio n Not available Not available Not available 02/22/2024 18621 8003 SNOMED RUFUS Song, [facility] 4 13:09:42 013112 Cipro medicatio n Not available Not available Not available 02/22/2024 21634 3 RxNorm RUFUS Song, [facility] 4 13:09:46 288975 Bactrim medicatio n Not available Not available Not available 02/22/2024 04272 9 RxNorm RUFUS Song, [facility] 4 13:09:53 998842 ciproflox acin medicatio n diarrhea myalgias (muscle pain) other Not available Not available Not available high 07/29/20252015 2551 RxNorm React ion: GI unrec ogniz ed react ion (text : Nause a & Vomit ing, code: 52480 000) (from exter nal sourc e) RUFUS Song, [facility] 5 16:20:52 917033 levofloxa carmencita medicatio n diarrhea Not available low 07/29/20252023 87083 RxNorm GI React ion RUFUS Song, [facility] 5 16:21:03 234031 nitrofura ntoin medicatio n other Not available low 07/29/20252015 7454 RxNorm React ion: GI, Other react ion(s ): Vomit ing React ion: GI, unrec ogniz ed react ion (text : Nause a And Vomit ing, code: 44057 000) [facility] Mary Vargas MA [facility], [place] - [facility] 5 16:21:05 535878 sulfameth oxazole / trimethop rim medicatio n Not available Not available Not available 09/26/20252018 56072 RxNorm unrec ogniz ed react ion (text : Nause a and/o r Vomit ing, code: 45328 000) ([facility]) Not Available ju - External Data Service - prod 5 15:55:35 Medications Name Sig Start Date Stop Date Status Note LastModified by Organization Details LastModified Time silver sulfadiazin e 1 % topical cream APPLY A 1/16 INCH (1.5 MM) THICK LAYER To the left leg skin tear BY TOPICAL ROUTE 2 TIMES PER DAY 07/31 completed Not Available Not Available Not Available azithromyci n 250 mg tablet TAKE 2 TABLETS (500 MG) BY ORAL ROUTE ONCE DAILY FOR 1 DAY THEN 1 TABLET (250 MG) BY ORAL ROUTE ONCE DAILY FOR 4 DAYS for any strep throat 11/26 completed Not Available Not Available Not Available fluconazole 150 mg tablet 02/21 completed Not Available Not Available Not Available prednisone 20 mg tablet Take 2 tablets every day by oral route for 5 days. 08/10 completed Not Available Not Available Not Available amoxicillin 875 mg tablet 07/29 completed Not Available Not Available Not Available alprazolam 0.25 mg tablet Take 1 tablet by oral route for 10 days. active Not Available Not Available No t Available cephalexin 500 mg capsule TAKE 1 CAPSULE BY MOUTH EVERY 6 HOURS 07/31 completed Not Available Not Available Not Available erythromyci n 5 mg/gram (0.5 %) eye ointment APPLY 1 CM RIBBON INTO THE LOWER CONJUNCTI DORCAS SAC(S) IN THE AFFECTED EYE(S) BY OPHTHALMI C ROUTE 3 TIMES PER DAY active Not Available Not Available No t Available oseltamivir 75 mg capsule TAKE ONE CAPSULE BY MOUTH DAILY FOR 10 DAYS FOR PREVENTIO N AFTER EXPOSURE 11/26 completed Not Available Not Available Not Available triamcinolo ne acetonide 0.025 % topical ointment 02/21 completed Not Available Not Available Not Available mupirocin 2 % topical ointment 02/21 completed Not Available Not Available Not Available estradiol 0.01% (0.1 mg/gram) vaginal cream INSERT 1 APPLICATO RFUL VAGINALLY 2 TIMES A WEEK DIRECTED active Not Available Not Available No t Available doxycycline hyclate 100 mg tablet TAKE 1 TABLET BY MOUTH TWICE DAILY 10/01 completed Not Available Not Available Not Available amoxicillin 875 mg-potassiu m clavulanate 125 mg tablet 02/21 completed Not Available Not Available Not Available tobramycin 0.3 %-dexametha sone 0.1 % eye drops,suspe nsion SHAKE LIQUID AND INSTILL 1 DROP IN RIGHT EYE THREE TIMES DAILY active Not Available Not Available No t Available Paxlovid 300 mg (150 mg x 2)-100 mg tablets in a dose pack TK 2 NIRMATREL VIR TS AND 1 RITONAVIR T TOGETHER PO TWICE DAILY FOR 5 DAYS 07/29 completed Not Available Not Available Not Available SpeedySwab COVID-19 and Flu kit FOLLOW PACKAGE DIRECTION S 07/29 completed Not Available Not Available Not Available Vitals Date Recorded Body height Body mass index (BMI) Body weight Respiratory rate Oxygen saturation Heart rate Systolic And Diastolic Provider Name and Address Organization Details Last Updated DateTime 5 162.56 cm 22.3 kg/m2 71251.2 9 g 18 /min 100 % 82 /min 130/82 mm[Hg] Mary Vargas [place] - [facility] 5 14:33:30 Social History Question Answer Notes LastModified by Organizat ion Details LastModified Time Tobacco Smoking Status Never Smoker Mary Vargas MA null, [place] - [facility] 02/22/2024 12:13:46 Are You Blind Or Do You Have [...] No Information not available 02/22/2024 Are You Deaf Or Do You Have Serious Difficulty Hearing? No Hearing Aids Information not available 02/22/2024 What Type Of Diet Are You Following? REGULAR Information not available 02/22/2024 Are There Any Guns Present In Your Home? No Information not available 02/22/2024 What Was The Date Of Your Most Recent Tobacco Screening? 10/01/2025 Information not available 10/01/2025 Do You Use Your Seat Belt Or Car Seat Routinely? Yes Information not available 02/22/2024 Do You Have Smoke And Carbon Monoxide Detectors In Your Home? Yes Information not available 02/22/2024 Do You Use Sunscreen Routinely? No Information not available 07/09/2024 Has Tobacco Cessation Counseling Been Provided? No Information not available 02/22/2024 Sex: Female Functional Status Question Answer Note LastModified by Organizat ion Details LastModified Time Do you use any illicit or recreational drugs? No Information not available 02/22/2024 Do you or have you ever used any other forms of tobacco or nicotine? No Information not available 02/22/2024 What is your level of alcohol consumption? Occasional Information not available 02/22/2024 Are you currently employed? No [email or web address] Information not available 07/09/2024 Are you able to care for yourself independently? Yes Information not available 02/22/2024 What is your exercise level? Occasional Information not available 02/22/2024 Mental Status Question Answer Note LastModified by Organization D etails LastModified Time Do you feel stressed (tense, restless, nervous, or anxious, or unable to sleep at night)? [id number] Information not available 07/09/2024 Family History Relationship Description Onset Age of [...] Skin Problems N Anemia N Heart Attack (DE) N Anxiety Disorder N Diabetes N Muscle, [...] Time Influenza, adjuvanted, quadrivalent, PF 3 completed RUFUS Song, [place] [facility] 11/25/2024 12:17:33 Influenza, adjuvanted, [...] 11/25/2024 12:17:33 influenza, unspecified formulation 3 completed Mary Varg[place] [facility] 11/25/2024 12:17:33 Tdap 4 completed Mary [place] [facility] 11/25/2024 12:17:33 Tdap 0 completed [place] [facility] 11/25/2024 12:17:33 pneumococcal, unspecified formulation 3 completed [place] [facility] 11/25/2024 12:17:33 zoster live 9 completed RUFUS Song[place] [facility] 11/25/2024 12:17:33 Influenza, split virus, trivalent, preservative 2 completed RUFUS [place] [facility] 11/25/2024 12:17:33 Past Encounters Encounter ID Performer Location Encounter Start Date Encounter Closed Date Diagnosis/Indication Diagnosis SNOMED-CT Code Diagnosis ICD10 Code Diagnosis IMO Codes Diagnosis Note [id number] Vijay Dick MD [facility] [address] [place] [address] 10/01/2025 14:17:58 10/01/2025 15:52:42 Normal weight 31170632 Z68.22 8535742133 Normal BMI Osteopenia 453183731 M85 .80 DEXA scan is up-to-date August 09, 2024 due again next year Anxiety 02708954 F41.9 Stable on PRN infrequent use of alprazolam Long-term current use of drug therapy 633045701 Z79.899 21690828 routine cbc, bmp, lft, and tsh ordered. Cholesterol screening 27 6873893 Z13.220 363371 fasting lipids due Health Concerns Section Related Observation LastModified by Organization Detai ls LastModified Time None Recorded Concern Status LastModified by Organization Details LastModified Time None Recorded Payers Encounter Date Sequence Insurance Name Policy Number Policy Becker Covered Member ID Becker Member ID Guarantor Name 10/01/2025 1 [employer] (MEDICARE REPLACEMENT/ ADVANTAGE - PPO) [id number] Yeni Byron [id number] Yeni Matthews Notes Date Note Type Note Provider Name and Address Organization Details Recorded Time 10/01/2025 text/html Patient is here just for routine check. No significant complaints just a routine follow-up. Current last set of labs are November she will be due again in the new year YOBANI Clinton Attn: Accounting,[address] [facility], [place], [address], [facility] - [facility] 10/12/2025 23:33:27 OBGyn Episode No OBEpisode recorded.
--- OUTSIDE RECORDS SUMMARY | 2025-11-11 13:40 | XMS_ITS | Patient Health Record ---
Author Organization [facility] Address [address] [place], [place] [address] Care Team Providers Care Side Gluer Name Role Phone Earnestmil BEE Unavailable [phone] Vijya Dick Unavailable Unavailable Reason For Referral No Information Social History Social History Additional Details Category Social Info Options Details Migrated Social History Migrated Social History Alcohol intake : , History of tobacco use : , Smoking Status : Never smoked Plan Of Treatment No Information Insurance Providers Payer Name Payer Address Payer Phone Subscriber Number Group Number Insured Name Patient Relationship to Insured Coverage Start Date Coverage End Date [facility] [address] [address] [place] [address] [id number] LI MARTINES Self - patient is the insured
--- OUTSIDE RECORDS SUMMARY | 2025-11-11 13:41 | XMS_ITS | Encounter Summary ---
Author Organization [facility] Address [address] [place] [address] Care Team Providers Care Residential Support Worker Name Role Phone Fern Gross Primary Care Pr ovider Fern Gross Unavailable Encounter Details Date Type Department Care Team (Late st Contact Info) Description 10/04/2025 Results Follow-Up [facility] Con[facility]ient Care at [address] [address] Clarissa Travis NP [address] [facility] [address] [place] [address] Throat culture Throat, Urine culture Urine, clean voided Social History Tobacco Use Types Packs/Day Years [...] on file Legal Sex Female 3:53 AM PARKING MANAGER Gender Identity Female 11/04/2020 9:21 PM PARKING MANAGER Sexual Orientation Straight 11/04/2020 9: 21 PM PARKING MANAGER documented as of this encounter Miscellaneous Notes * Result Encounter Note - Ceci Benavides MA - 10/06/2025 7:46 PM CST Patient called back and was informed that she needed to come back in and give another urine sample.She said that she would come in a do that some time this week to do that. ING MANAGER * Result Encounter Note - Ceci Benavides MA - 10/06/2025 7:26 PM CST Called patient and left a voicemail for them to return our call to receive their results. ING MANAGER * Result Encounter Note - Leticia King LPN - 10/05/2025 10:10 AM PARKING MANAGER LVM for pt to return call to clinic to notify them of labs results. ING MANAGER documented in this encounter Plan of Treatment Not on file documented as of this encounter Visit Diagnoses Not on filedocumented in this encounter Additional Health Concerns Infection Onset Date Last Indicated Resolved Time COVID: Suspected 11/01/2025 11/01/2025 11/01/2025 7:47 PM PARKING MANAGER COVID: Suspected 11/01/2025 11/01/2025 11/02/2025 12:03 AM PARKING MANAGER documented as of this encounter Care Teams Residential Support Worker Relationship Specialty Start Date End Date Fern Gross PA PCP - General 09/25/17 Fern Gross PA Referring Physician Physician Cook Sauce 08/12/21 documented as of this encounter
--- OUTSIDE RECORDS SUMMARY | 2025-11-11 13:41 | XMS_ITS | Encounter Summary ---
Author Organization [facility] Address [address] [place] [address] Care Team Providers Care Gas Engine Operator Name Role Phone Fern Gross Primary Care Pr ovider Fern Gross Unavailable Encounter Details Date Type Department Care Team (Late st Contact Info) Description 09/17/2025 Results Follow-Up [facility] Convenient Care at [address] [address] Clarissa Travis NP [address] [place] [address] [address] [place] [address] Vaginitis panel Vaginal, Urine culture Urine, clean voided Social History [...] on file Legal Sex Female 3:53 AM CAMERA SUPERVISOR Gender Identity Female 11/04/2020 9:21 PM CAMERA SUPERVISOR Sexual Orientation Straight 11/04/2020 9: 21 PM CAMERA SUPERVISOR documented as of this encounter Miscellaneous Notes * Result Encounter Note - Jennifer Argueta MA - 09/21/2025 8:28 AM CST Message sent to [facility] after 2 calls. Patient viewed results. RA SUPERVISOR * Result Encounter Note - Sol Lopez LPN - 09/20/2025 6:42 PM CAMERA SUPERVISOR LMTRC RA SUPERVISOR * Result Encounter Note - Liana Juarez MA - 09/19/2025 4:02 PM CST Called pt & LVM to return call RA SUPERVISOR * Result Encounter Note - Leticia King LPN - 09/17/2025 6:58 PM CAMERA SUPERVISOR Notified pt of their results and follow up instructions. Pt verbalized understanding. RA SUPERVISOR documented in this encounter Plan of Treatment Not on file documented as of this encounter Visit Diagnoses Not on filedocumented in this encounter Additional Health Concerns Infection Onset Date Last Indicated Resolved Time COVID: Suspected 10/03/2025 10/03/2025 10/03/2025 8:43 AM CAMERA SUPERVISOR COVID: Suspected 11/01/2025 11/01/2025 11/01/2025 7:47 PM CAMERA SUPERVISOR COVID: Suspected 11/01/2025 11/01/2025 11/02/2025 12:03 AM CAMERA SUPERVISOR documented as of this encounter Care Teams Gas Engine Operator Relationship Specialty Start Date End Date Fern Gross PA PCP - General 09/25/17 Fern Gross PA Referring Physician Physician Marketing Operations Manager 08/12/21 documented as of this encounter
--- OUTSIDE RECORDS SUMMARY | 2025-11-11 13:41 | XMS_ITS | Encounter Summary ---
Author Organization [facility] Healthcare Address [address] [place] [address] Care Team Providers Care Tmd Teacher Name Role Phone Fern Gross Primary Care Pr ovider Fern Gross Unavailable Encounter Details Date Type Department Care Team (Late st Contact Info) Description 10/10/2025 Results Follow-Up [facility]ient [facility] at [address] [address] Clarissa Travis NP [address] [facility] [address] [place] [address] Urine culture Urine, clean voided Social History [...] on file Legal Sex Female 3:53 AM MATERIAL DISPOSITION INSPECTOR Gender Identity Female 11/04/2020 9:21 PM MATERIAL DISPOSITION INSPECTOR Sexual Orientation Straight 11/04/2020 9: 21 PM MATERIAL DISPOSITION INSPECTOR documented as of this encounter Plan of Treatment Not on file documented as of this encounter Visit Diagnoses Not on filedocumented in this encounter Additional Health Concerns Infection Onset Date Last Indicated Resolved Time COVID: Suspected 11/01/2025 11/01/2025 11/01/2025 7:47 PM MATERIAL DISPOSITION INSPECTOR COVID: Suspected 11/01/2025 11/01/2025 11/02/2025 12:03 AM MATERIAL DISPOSITION INSPECTOR documented as of this encounter Care Teams Tmd Teacher Relationship Specialty Start Date End Date Fern Gross PA PCP - General 09/25/17 Fern Gross PA Referring Physician Physician Director Of Strategic Communications 08/12/21 documented as of this encounter
--- OUTSIDE RECORDS SUMMARY | 2025-11-11 13:41 | XMS_ITS | Encounter Summary ---
Author Organization [facility] Healthcare Address [address] [place] [address] Care Team Providers Care Chemical Detection Expert Name Role Phone Fern Gross Primary Care Pr ovider Fern Gross Unavailable Encounter Details Date Type Department Care Team (Late st Contact Info) Description 11/02/2025 Results Follow-Up [facility] Medical Group Convenient Care at [address] [address] Ana Sal NP [address] [place] [address] [address] [place] [address] Influenza A/B, RSV, and COVID-19 PCR Nasopharyngeal, Throat culture Throat Social History Tobacco Use Types Packs/Day Years [...] on file Legal Sex Female 3:53 AM CHALK EXTRUDING MACHINE OPERATOR Gender Identity Female 11/04/2020 9:21 PM CHALK EXTRUDING MACHINE OPERATOR Sexual Orientation Straight 11/04/2020 9: 21 PM CHALK EXTRUDING MACHINE OPERATOR documented as of this encounter Plan of Treatment Not on file documented as of this encounter Visit Diagnoses Not on filedocumented in this encounter Additional Health Concerns Infection Onset Date Last Indicated Resolved Time COVID: Suspected 11/01/2025 11/01/2025 11/02/2025 12:03 AM CHALK EXTRUDING MACHINE OPERATOR documented as of this encounter Care Teams Chemical Detection Expert Relationship Specialty Start Date End Date Fern Gross PA PCP - General 09/25/17 Fern Gross PA Referring Physician Physician Roll Plugger Machine Operator 08/12/21 documented as of this encounter
--- OUTSIDE RECORDS SUMMARY | 2025-11-11 13:41 | XMS_ITS | Clinical Summary ---
Author Organization [facility] Address [address] [place] [address] Care Team Providers Care Microcomputer Technician Name Role Phone Fern Gross Primary Care [...] triamcinolone (KENALOG) 0.025 % ointment Apply topically 4 Active benzonatate (TESSALON) 200 mg capsuleIndication s:Acute cough Take 1 capsule (200 mg total) by mouth 3 (three) times a day as needed for cough 30 capsule 5 Active amoxicillin-clavu lanate (AUGMENTIN) 875-125 mg per tabletIndications :Acute non-recurrent maxillary sinusitis Take 1 tablet by mouth 2 (two) times a day for 7 days 14 tablet 5 11/12/20 25 Active lidocaine viscous (XYLOCAINE) 2 % solutionIndicatio ns:Acute cough,Acute non-recurrent maxillary sinusitis Apply 10 mL to the mouth or throat every 6 (six) hours as needed (sore throat) May mix with 30 ml of Mylanta 100 mL 5 Active Active Problems Problem Noted Date Diagnosed [...] hematoma 10/10/2020 10/11/2020 Dizziness and giddiness 07/31/202009/14 Encounters Date Type Department Care Team Description 11/05/2025 4:00 PM RESPIRATORY ASSISTANT Office Visit [facility] Medical [facility]ient Care at [address] [address] Remedios Anderson NP Acute cough (Primary Dx); Acute non-recurrent maxillary sinusitis 11/02/2025 Results Follow-Up [facility] Medical [facility] Convenient Care at [address] [address] Ana Sal NP Influenza A/B, RSV, and COVID-19 PCR Nasopharyngeal, Throat culture Throat 11/01/2025 10:40 PM RESPIRATORY ASSISTANT - 11/01/2025 11:59 PM RESPIRATORY ASSISTANT Hospital Encounter [address] [address] Discharge Disposition: Discharge to home or self care 11/01/2025 10:24 PM RESPIRATORY ASSISTANT - 11/01/2025 11:59 PM RESPIRATORY ASSISTANT Hospital Encounter [address] [id number] Nasopharyngitis acute; Acute cough Discharge Disposition: Discharge to home or self care 11/01/2025 7:30 PM RESPIRATORY ASSISTANT Office Visit [facility] at [address] [address] Ana Sal NP Acute cough (Primary Dx); Congestion of nasal sinus; Nasopharyngitis acute 10/10/2025 Results Follow-Up [facility] at [address] [address] Clarissa Travis NP Urine culture Urine, clean voided 10/07/2025 1:06 PM RESPIRATORY ASSISTANT - 10/07/2025 11:59 PM RESPIRATORY ASSISTANT Hospital Encounter [address] [id number] Dysuria Discharge Disposition: Discharge to home or self care 10/07/2025 12:45 PM RESPIRATORY ASSISTANT Clinical Support [facility] Group Convenient Care at [address] [id number] Dysuria (Primary Dx) 10/04/2025 Results Follow-Up [facility] Con[facility]ient Care at [address] [phone] Clarissa Travis NP Throat culture Throat, Urine culture Urine, clean voided 10/03/2025 8:28 AM RESPIRATORY ASSISTANT - 10/03/2025 11:59 PM RESPIRATORY ASSISTANT Hospital Encounter [address] [id number] Acute pharyngitis, unspecified etiology; Urinary frequency Discharge Disposition: Discharge to home or self care 10/03/2025 8:15 AM RESPIRATORY ASSISTANT Office Visit [facility] at [address] [phone] Clarissa Travis NP Acute pharyngitis, unspecified etiology (Primary Dx); Urinary frequency 09/17/2025 10:59 AM RESPIRATORY ASSISTANT - 09/17/2025 11:59 PM RESPIRATORY ASSISTANT Hospital Encounter [address] [id number] Vaginal itching; Urinary problem Discharge Disposition: Discharge to home or self care 09/17/2025 10:45 AM RESPIRATORY ASSISTANT Office Visit [facility] at [address] [phone] Ana Sal NP Vaginal itching (Primary Dx); Urinary problem 09/17/2025 Results Follow-Up [facility] at [address] [address] Clarissa Travis NP Vaginitis panel Vaginal, Urine culture Urine, clean voided from Last 3 Months Immunizations Immunization Administration Dates Next Due Influenza, Trivalent, High D ose, Split, Preservative Free, Intramuscular 10/16/2019 Influenza, Trivalent, IM (MDV) 11/09/2012 Influenza, Unspecified 10/11/2023,09/13/2019,11/2012 Pneumococcal Polysaccharide PPV23 11/09/2012 Pneumococcal, Unspecified 01/11/2013,11/13/2010 Tdap 07/08/2024(Deferred: Patient Refused - pt reports TDAP w/ in last 5yrs),10/11/2020 ZOSTER LIVE 07/01/2019,11/13/2010,07/15/2009 Surgical History Surgery Date Site/Laterality Comments CATARACT EXTRACTION Cataract extraction VAGINAL HYSTERECTOMY Hysterectomy, vaginal WI TOTAL ABDOMINAL HYSTERECT W/WO RMVL TUBE OVARY Hysterectomy - (Added by TW Conv) WI CYSTO W/INSERT URETERAL STENT Cystoscopy With Insertion Of Ureteral Stent - (Added by TW Conv) WI POST COLPORRHAPHY RECTOCELE W/WO PERINEORRHAPHY Posterior Colporrhaphy (For Pelvic Relaxation) - (Added by TW Conv) WI COLPOPEXY VAGINAL INTRAPERITONEAL APPROACH Vaginal Colpopexy, Intraperitoneal Approach - (Added by TW Conv) CATARACT EXTRACTION COSMETIC SURGERY 2011 HYSTERECTOMY 50 yrs ago BLADDER SURGERY prolapse 2016 MOHS SURGERY Medical History Medical History Date [...] and well; Asthma Sister 4 Floyd Asthma; COPD Sister 4 Floyd Relation Name Status Comments Daughter 1 (Age [...] on file Legal Sex Female 3:53 AM RESPIRATORY ASSISTANT Gender Identity Female 11/04/2020 9:21 PM RESPIRATORY ASSISTANT Sexual Orientation Straight 11/04/2020 9: 21 PM RESPIRATORY ASSISTANT Obstetrics History Para Term AB IAB SAB Ectopic Multiple Livin g Live Births 4 4 4 4 4 Date Outcome GA Total Labor Labor/2nd/3rd Weight Sex Type Anes PTL Jolene A1 A5 Name Clin Term Vaginal Living Term Vaginal Living Term Vaginal Living Term Vaginal Living Last Filed Vital Signs Vital Sign Reading Time Taken Comments Blood Pressure 145/77 11/05/2025 4:09 PM RESPIRATORY ASSISTANT Pulse 112 11/05/2025 4:09 PM RESPIRATORY ASSISTANT Temperature 37.6 C (99.6 F) 11/05/2025 4:09 PM RESPIRATORY ASSISTANT Respiratory Rate 24 11/05/2025 4:09 PM RESPIRATORY ASSISTANT Oxygen Saturation 97% 11/05/2025 4:09 PM RESPIRATORY ASSISTANT Inhaled Oxygen Concentration - - Weight 61.7 kg (136 lb) 11/05/2025 4:09 PM RESPIRATORY ASSISTANT Height 160 cm (5' 3) 11/05/2025 4:09 PM RESPIRATORY ASSISTANT Body Mass Index 24.09 11/05/2025 4:09 PM RESPIRATORY ASSISTANT Plan of Treatment Health Maintenance Due Date Last Done Comments Depression Screening 1935 Osteoporosis Screening-Bone Density Scan 1937 Hepatitis B Screening 1955 Well Visit 65+ 2002 Pneumococcal vaccine 65+ (2 of 2 - PCV) 01/11/2014 01/11/2013, 11/09/2012, 11/13/2010 Zoster Vaccine (2 of 3) 08/26/2019 07/01/20 19, 11/13/2010, 07/15/2009 Fall Risk Assessment 05/01/2025 05/01/2024 Covid-19 Vaccine (3 - 2024-2 6 season) 2025 01/25/2021, 12/24/2020 Influenza Vaccine (#1) 2025 3, 10/16/2019, 09/13/2019, Additional history exists DTaP/Tdap/Td Vaccine (3 - Td or Tdap) 02/01/2034 02/02/2024, 10/11/2020 Procedures Procedure Name Priority Date/Time Associated Diagnosis Comments POC INFLUENZA A/B, RSV AND COVID-19 PCR Routine 11/05/2025 4:41 PM RESPIRATORY ASSISTANT Acute cough INFLUENZA A/B, RSV, AND COVID-19 PCR Routine 11/01/2025 7:50 PM RESPIRATORY ASSISTANT Acute cough POC INFLUENZA A/B, COVID-19 ANTIGEN Routine 11/01/2025 7:46 PM RESPIRATORY ASSISTANT Acute cough THROAT CULTURE Routine 11/01/2025 7:44 PM RESPIRATORY ASSISTANT Nasopharyngitis acute POCT RAPID STREP Routine 11/01/2025 7:38 PM RESPIRATORY ASSISTANT Nasopharyngitis acute URINE CULTURE Routine 10/07/2025 1:06 PM RESPIRATORY ASSISTANT Dysuria POC INFLUENZA A/B, COVID-19 ANTIGEN Routine 10/03/2025 8:42 AM RESPIRATORY ASSISTANT Acute pharyngitis, unspecified etiology POCT RAPID STREP Routine 10/03/2025 8:34 AM RESPIRATORY ASSISTANT Acute pharyngitis, unspecified etiology URINE CULTURE Routine 10/03/2025 8:28 AM RESPIRATORY ASSISTANT Urinary frequency THROAT CULTURE Routine 10/03/2025 8:28 AM RESPIRATORY ASSISTANT Acute pharyngitis, unspecified etiology POCT URINALYSIS DIPSTICK Routine 10/03/2025 8:24 AM RESPIRATORY ASSISTANT Urinary frequency POCT URINALYSIS DIPSTICK Routine 09/17/2025 11:00 AM RESPIRATORY ASSISTANT Vaginal itching URINE CULTURE Routine 09/17/2025 10:59 AM RESPIRATORY ASSISTANT Vaginal itching Urinary problem VAGINITIS PANEL Routine 09/17/2025 10:59 AM RESPIRATORY ASSISTANT Vaginal itching from Last 3 Months Results * POC Influenza A/B, RSV and COVID-19 PCR (11/05/2025 4:41 PM RESPIRATORY ASSISTANT) COVID-19 RNA PCR, POC Negative Not Detected, Negative, Undetected [facility] FLU A RNA PCR, POC Negative Not Detected, Negative, Undetected [facility] FLU B RNA PCR, POC Negative Not Detected, Negative, Undetected [facility] RSV RNA PCR, POC Negative Not Detected, Negative, Undetected [facility] Nasopharyngeal 11/05/2025 4: 41 PM RESPIRATORY ASSISTANT Remedios Anderson NP POINT OF CARE TEST ORDERAB LES Final Result Performing Organization Address [facility]/ZIP Co de Phone Number [address] * Influenza A/B, RSV, and COVID-19 PCR Nasopharyngeal (11/01/2025 7:50 PM RESPIRATORY ASSISTANT) [facility] COVID-19 RNA Negative Negative Influenza A RNA Negative Negative [facility] Influenza B RNA Negative Negative [facility] RSV RNA Negative Negative [facility] Comment: Interpretive data: Testing performed by [facility]. This test is performed using the [employer] Xpert Xpress CoV-2/Flu/RSV plus assay. This is a multiplex, real-time reverse transcriptase PCR assay intended for the qualitative detection of nucleic acid from SARS-CoV-2, influenza A, influenza B, and respiratory syncytial virus. This assay has been cleared by the [place] Food and Drug administration. The performance characteristics have been verified by the [facility]. Results must be considered in the clinical context, and a negative result does not rule out infection. Interpretive Data last revised 2023 Nasopharyngeal 11/01/2025 7: 50 PM RESPIRATORY ASSISTANT 11/01/2025 10:49 PM RESPIRATORY ASSISTANT Narrative [facility] - 11/02/2025 12:02 AM RESPIRATORY ASSISTANT Is the Patient experiencing symptoms consistent with COVID?->Yes Reason for testing?->Symptomatic Known exposure to confirmed or suspected COVID-19 case?->No Ana Sal NP LAB MICROBIOLOGY - GENERAL ORD ERABLES Final Result Performing Organization Address City/[facility]/ZIP Co de Phone Number [facility] [address] Department [place] [address] CH * POC Influenza A/B, COVID-19 antigen (11/01/2025 7:46 PM RESPIRATORY ASSISTANT) Influenza A Ag, POC Negative Negative [facility] Influenza B Ag, POC Negative Negative [facility] COVID-19 Ag POC Presumptive Negative Presumptive Negative, Invalid [facility] Nasal 11/01/2025 7:46 PM RESPIRATORY ASSISTANT us Ana Sal NP POINT OF CARE TEST ORDERABLES Final Result Performing Organization Address City/[facility] Co de Phone Number [facility] [address] [place] [address] * Throat culture Throat (11/01/2025 7:44 PM RESPIRATORY ASSISTANT) Report Final Report: No growth of pathogens. Comment:Testing performed by : [facility], [address] [place]., [address] Throat 11/01/2025 7:44 PM RESPIRATORY ASSISTANT 11/02/2025 2:24 AM RESPIRATORY ASSISTANT Narrative [facility] - 11/02/2025 8:57 PM RESPIRATORY ASSISTANT Testing performed by [facility] Microbiology Laboratory ([phone]). us Ana Sal NP LAB MICROBIOLOGY - GENERAL ORD ERABLES Final Result Performing Organization Address City/[facility]/ZIP Co de Phone Number [facility] [address] Department [place] [address] * POCT rapid strep A (11/01/2025 7:38 PM RESPIRATORY ASSISTANT) Rapid Strep A, POC Negative Negative Swab 11/01/2025 7:38 PM RESPIRATORY ASSISTANT us Ana Sal NP POINT OF CARE TEST ORDERABLES Final Result * Urine culture Urine, clean voided (10/07/2025 1:06 PM RESPIRATORY ASSISTANT) Report Final Report: Less than 100,000 colonies/mL (clinically insignificant growth based on current clinical standards) Comment:Testing performed by : [facility], [address] [place]., [address] Organism (CLINICALLY INSIGNIFICANT GROWTH [facility] Urine, clean voided 10/07/2025 1:06 PM RESPIRATORY ASSISTANT 10/07/2025 8:57 PM RESPIRATORY ASSISTANT Narrative [facility] - 10/09/2025 7:27 AM RESPIRATORY ASSISTANT Testing performed by [facility] Microbiology Laboratory ([phone]) Remedios Anderson NP LAB MICROBIOLOGY - GENERAL ORDERABLES Final Result [facility] [address] Department [place] [address] * POC Influenza A/B, COVID-19 antigen (10/03/2025 8:42 AM RESPIRATORY ASSISTANT) Influenza A Ag, POC Negative Negative [facility] Influenza B Ag, POC Negative Negative [facility] COVID-19 Ag POC Presumptive Negative Presumptive Negative, Invalid [facility] Nasal 10/03/2025 8:42 AM RESPIRATORY ASSISTANT Clarissa Travis NP POINT OF CARE TEST ORDERABLES F inal Result [facility] [address] [place] [address] * POCT rapid strep A (10/03/2025 8:34 AM RESPIRATORY ASSISTANT) Rapid Strep A, POC Negative Negative Swab 10/03/2025 8:34 AM RESPIRATORY ASSISTANT Clarissa Travis NP POINT OF CARE TEST ORDERABLES F inal Result * Urine culture Urine, clean voided (10/03/2025 8:28 AM RESPIRATORY ASSISTANT) Report Final Report: Growth indicative of contamination with periurethral cisco. Please submit a new specimen with special attention given to the collection process and to prompt transport to the laboratory. Comment:Testing performed by : [facility], [address] [place]., [address] Organism GROWTH INDICATES CONTAM WITH PERIURETHRAL CISCO. [facility] Urine, clean voided 10/03/2025 8:28 AM RESPIRATORY ASSISTANT 10/03/2025 6:51 PM RESPIRATORY ASSISTANT Narrative [facility] - 10/05/2025 6:26 AM RESPIRATORY ASSISTANT Testing performed by [facility] Microbiology Laboratory ([phone]) Clarissa Travis NP LAB MICROBIOLOGY - GENERAL ORDE [facility] Final Result Performing Organization Address [facility]/ZIP Co de Phone Number [facility] [address] Department [place] [employer] [place] [address] * Throat culture Throat (10/03/2025 8:28 AM RESPIRATORY ASSISTANT) Report Final Report: No growth of pathogens. Comment:Testing performed by : [facility], [address] [place] [address] Throat 10/03/2025 8:28 AM RESPIRATORY ASSISTANT 10/03/2025 6:50 PM RESPIRATORY ASSISTANT Narrative [facility] - 10/04/2025 2:29 PM RESPIRATORY ASSISTANT Testing performed by [facility] Microbiology Laboratory ([phone]). Clarissa Travis NP LAB MICROBIOLOGY - GENERAL ORDE RABLES Final Result Performing Organization Address City/[facility]/ZIP Co de Phone Number [facility] [address] [place] [address] * (ABNORMAL) POCT urinalysis dipstick (10/03/2025 8:24 AM RESPIRATORY ASSISTANT) Color, Urine, POC Yellow Clarity, ur, POC Cloudy(A) Clear Glucose, ur, POC Negative Negative Bilirubin, ur, POC Negative Negative Ketones, ur, POC Negative Negative Specific [place], POC 1.020 1.003 - 1.030 Blood, ur, POC Hemolyzed, trace(A) Negative pH, ur, POC 6.0 5.0 - 8.0 Protein, ur, POC Negative Negative Urobilinogen, urine, POC 0.2 0.2 - 1.0 mg/dL Nitrite, ur, POC Negative Negative Leukocytes, ur, POC Small(A) Negative Lot Number [id number] Urine 10/03/2025 8:24 AM RESPIRATORY ASSISTANT Clarissa Travis CHAIR LIFT OPERATOR POINT OF CARE TEST ORDERABLES F inal Result * (ABNORMAL) POCT urinalysis dipstick (09/17/2025 11:00 AM RESPIRATORY ASSISTANT) Pathologist [facility] Color, Urine, POC Yellow Clarity, ur, POC Turbid(A) Clear Glucose, ur, POC Negative Negative Bilirubin, ur, POC Negative Negative Ketones, ur, POC Negative Negative Specific [place], POC 1.015 1.003 - 1.030 Blood, ur, POC Negative Negative pH, ur, POC 7.5 5.0 - 8.0 Protein, ur, POC Negative Negative Urobilinogen, urine, POC 0.2 0.2 - 1.0 mg/dL Nitrite, ur, POC Negative Negative Leukocytes, ur, POC Small(A) Negative Lot Number [id number] Urine 09/17/2025 11:0 0 AM RESPIRATORY ASSISTANT Ana Sal CHAIR LIFT OPERATOR POINT OF CARE TEST ORDERABLES Final Result * Vaginitis panel Vaginal (09/17/2025 10:59 AM RESPIRATORY ASSISTANT) Bacterial Vaginosis Not Detected Not Detected Comment:A negative result do es not preclude a possible infection. Results should be considered in conjunction with clinical presentation to determine the disease status. Suri group Not Detected Not Detected [facility]ERN[facility] Suri glabrata/ krusei Not Detected Not Detected CERNER Trichomonas DNA Not Detected Not Detected [facility] Vaginal 09/17/2025 10:5 9 AM RESPIRATORY ASSISTANT 09/17/2025 3:35 PM RESPIRATORY ASSISTANT Narrative [facility] 09/17/2025 4:57 PM RESPIRATORY ASSISTANT The [employer] Xpert Xpress MVP test detects DNA targets from anaerobic bacteria associated with bacterial vaginosis, Suri species associated with vulvovaginal candidiasis, and Trichomonas vaginalis by nucleic acid amplification testing (NAAT). Results should be interpreted in conjunction with other clinical data. This test cannot be used to assess therapeutic success or failure because target nucleic acids may persist following antimicrobial therapy. This test has been cleared by the [place] Food and Drug Administration to aid in the diagnosis of vaginal infections in symptomatic women ages 14 and older. The performance characteristics of this test have been verified by the [facility]. Ana Sal NP LAB MICROBIOLOGY - GENERAL ORD ERABLES Final Result Performing Organization Address [facility]/ZIP Co de Phone Number [facility] [address] [place] [address] [place] * Urine culture Urine, clean voided (09/17/2025 10:59 AM RESPIRATORY ASSISTANT) Report Final Report: Growth indicative of contamination with periurethral cisco. Please submit a new specimen with special attention given to the collection process and to prompt transport to the laboratory. Comment:Testing performed by : [facility], [address] [place]., [address] Organism GROWTH INDICATES CONTAM WITH [facility]RAL [facility]CO. [facility] Urine, clean voided 09/17/2025 10:59 AM RESPIRATORY ASSISTANT 09/17/2025 8:57 PM RESPIRATORY ASSISTANT Narrative [facility] - 09/19/2025 12:44 PM RESPIRATORY ASSISTANT Testing performed by [facility] Microbiology Laboratory ([phone]) Ana Sal NP LAB MICROBIOLOGY - GENERAL ORD ERABLES Final Result [facility] [address] [place] [address] from Last 3 Months Insurance [facility] MEDICARE [facility] MEDICARE [facility] MEDICARE [employer] MEDICARE MRA Advance Directives For more information, please contact: [phone] * Full Code (Latest Code Status on File) Date Activated Date Inactivated Comments 10/10/2020 7:44 AM 10/12/2020 4:55 PM Care Teams Microcomputer Technician Relationship Specialty Start Date End Date Fern Gross PA PCP - General 09/25/17 Fern Gross PA Referring Physician Physician Hydraulic Design Engineer 08/12/21
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
[2025-11-11 14:23] LABS: Hematocrit 41.0 % (37.0-47.0); Hemoglobin 13.5 g/dL (12.0-15.0); Immature Granulocyte Percent A 0.1 % (0-0.5); Lymphocytes Absolute Auto 3.73 K/mm3 (0.9-3.2); Mean Corpuscular HGB Conc 32.9 g/dl (32-36); Mean Corpuscular Hemoglobin 31.9 pg (26-34); Mean Corpuscular Volume 96.9 fl (80-100); Nucleated Red Blood Cells Absolute Auto 0.000 K/mm3 (0.0-0.012); Nucleated Red Blood Cells Perc 0.0 % (0.0-0.2); Platelet Count Result 269 k/mm3 (150-375); Red Blood Count 4.23 M/mm3 (4.2-5.4); White Blood Count 7.9 K/mm3 (4.5-10.0)
[2025-11-11 14:43] LABS: Alanine Aminotransferase 24 U/L (6-35); Albumin Level 4.0 g/dL (3.5-5.1); Alkaline Phosphatase 92 U/L (38-126); Anion Gap 4 mmol/L (4-12); Aspartate Amino Transferase 30 U/L (14-36); Bilirubin,Total 0.5 mg/dL (0.2-1.3); Blood Urea Nitrogen 21 mg/dL (7-17); Calcium 9.3 mg/dL (8.4-10.2); Carbon Dioxide 29 mmol/L (22-30); Chloride 105 mmol/L (98-107); Cholesterol 214 mg/dL (0-200); Estimated Glomerular Filt Rate > 60; Glucose 97 mg/dL (65-110); HDL Direct 54 mg/dL; Potassium 4.4 mmol/L (3.4-5.0); Sodium 138 mmol/L (137-145); Total Protein 6.9 g/dL (6.3-8.2); Triglycerides 120 mg/dL (<150)
[2025-11-11 15:00] LABS: Free T4 Free Thyroxine 0.97 ng/dL (0.78-2.19)
[2025-11-11 15:18] LABS: Thyroid Stimulating Hormone 1.300 uIU/mL (0.465-4.680)
[2025-11-11 16:54] LABS: Vitamin B12 919.0 pg/mL (239-931)
== END 2025-11-11 13:22 | disposition home or self-care (01) ==
LOC: ANHLAB 13:25
PROVIDERS: PCP Physician Assistant; Visit Provider Physician Assistant
DX: M85.80 Other specified disorders of bone density and structure, unspecified site (principal); Z13.220 Encounter for screening for lipoid disorders; Z79.899 Other long term (current) drug therapy
CPT/HCPCS: 36415; 80048; 80061; 80076; 82306; 82607; 82746; 84439; 84443; 85025